=== PATIENT | male | born 1965 | race Caucasian/White ===

== ENCOUNTER 2025-01-04 11:51 | Inpatient (IN) | payer MEDICAID, OTHER ==
[~2025-01-04] VITALS: Ht 180.3 cm; Wt 73.1 kg
[~2025-01-04 11:51] MED LIST: NOCURR
[2025-01-04] MEDS ORDERED: TUBE5VIA TD (13:51)
[2025-01-04] MEDS ORDERED: MAGN400T57 PO (13:51)
[2025-01-04] MEDS ORDERED: ALBU18HF12 IH (13:51)
[2025-01-04] MEDS ORDERED: THIA100T80 PO (13:51)
[2025-01-04] MEDS ORDERED: FLUT1BLS3 IH (13:51)
[2025-01-04] MEDS ORDERED: MULT-1203 PO (13:51)
[2025-01-04] MEDS ORDERED: FOLI-130 PO (13:51)
[2025-01-04] MEDS ORDERED: NICO1PAT50 TD (13:51)
[2025-01-04] MEDS ORDERED: LEVE-71 PO (13:51)
[2025-01-04] MEDS ORDERED: OLAN2.5T78 PO (13:51)
[2025-01-04 13:52] LABS: PLATELET COUNT (AUTO) 318 K/uL (150-450); RED BLOOD CELL COUNT(AUTO) 4.25 MIL/uL (4.50-5.90); RED CELL DISTRIBUTION WIDTH 15.2 % (11.5-14.5); WHITE BLOOD COUNT (AUTO) 7.2 K/uL (4.5-11.0)
[2025-01-04 13:54] LABS: CALCIUM, TOTAL 8.9 mg/dL (8.8-10.5); CREATININE 0.69 mg/dL (0.60-1.30); GLOMERULAR FILTR. RATE CALC > 60 mL/min (>60); GLUCOSE,RANDOM 105 mg/dL (70-110); SODIUM SERUM 135 mmol/L (136-145); UREA NITROGEN, BLOOD 14 mg/dL (7-18)
[2025-01-04 13:58] LABS: ASPARTATE AMINOTRANSFERASE 14 U/L (15-37); CREATINE KINASE, TOTAL ONLY 46 U/L (39-308); TOTAL PROTEIN, SERUM 7.2 g/dL (6.4-8.2)
[2025-01-04 14:01] LABS: LACTIC ACID 0.7 mmol/L (0.4-2.0); TROPONIN I-HIGH SENSITIVITY 5 ng/L (<76)
[2025-01-04] MEDS: LevETIRAcetam 1,000 MG in DEXTROSE 5%-WATER 100 ML IV ONE (14:01)
[2025-01-04 14:23] LABS: ALCOHOL, BLOOD (SERUM) < 3 mg/dL (0-10)
[2025-01-04 14:40] LABS: APPEARANCE,URINE CLEAR (CLEAR); GLUCOSE, URINE (UA) NEGATIVE (NEGATIVE); LEUKOCYTE ESTERASE ,URINE NEGATIVE (NEGATIVE); NITRATE,URINE NEGATIVE (NEGATIVE); OCCULT BLOOD,URINE NEGATIVE (NEGATIVE); PH,URINE DRUG SCREEN 5.0 (5.0-8.0); SPECIFIC GRAVITIY, URINE 1.010 (1.003-1.030)
[2025-01-04 14:47] LABS: ALCOHOL, URINE DRUG SCREEN NEGATIVE (NEGATIVE); AMPHET/METH SCREEN,URINE NEGATIVE (NEGATIVE); BARBITURATE SCREEN, URINE NEGATIVE (NEGATIVE); CANNABINOID SCREEN,URINE NEGATIVE (NEGATIVE); COCAINE SCREEN,URINE NEGATIVE (NEGATIVE); METHADONE SCREEN, URINE NEGATIVE (NEGATIVE)
[2025-01-04] MEDS ORDERED: OLANZapine 5 MG RAPDIS TABLET PO PRN (15:30)
[2025-01-04] MEDS ORDERED: MAGNESIUM HYDROXIDE SUSPENSION 30 ML UDCUP PO PRN (15:30)
[2025-01-04] MEDS ORDERED: PROMETHAZINE HCL 25 MG TABLET PO PRN (15:30)
[2025-01-04] MEDS ORDERED: MAG HYDROX/ALUMINUM HYD/SIMETH ES 30 ML SUSPENSION UDCUP PO PRN (15:30)
[2025-01-04] MEDS ORDERED: ZOLPIDEM TARTRATE 10 MG TABLET PO PRN (15:30)
[2025-01-04] MEDS ORDERED: GuaiFENesin/D-METHORPHAN [SUGAR-FREE] 200-20MG/10 ML SYRUP UDCUP PO PRN (15:30)
[2025-01-04] MEDS: THIAMINE 100 MG TABLET PO SCH (22:23)
[2025-01-04] MEDS: OLANZapine 10 MG RAPDIS TABLET PO SCH (22:23)
[2025-01-05] VITALS (7 sets, daily range): BP systolic 107–136; BP diastolic 77–85; PULSE 78–104; RESP 16–19; TEMP 97.2–97.7; O2SAT 98–100
[2025-01-05] MEDS: MELATONIN 5 MG TABLET PO PRN (00:14)
[2025-01-05 01:42] LABS: COVID AG,FIA SOURCE NASAL SWAB
[2025-01-05 02:13] LABS: SARS-COV2 (COVID) ANTIGEN,FIA Negative (Negative)
[2025-01-05] MEDS: FOLIC ACID 1 MG TABLET PO SCH (08:32)
[2025-01-05] MEDS: DIVALPROEX SODIUM 500 MG ER TABLET PO SCH (08:32)
[2025-01-05] MEDS: MULTIVITAMINS WITH MINERALS, THERAPEUTIC TABLET PO SCH (08:32)
[2025-01-05 10:10] LABS: CHOL/HDL RATIO 2.0 (4.2-7.3); LDL CHOL (CALC.) 46.0 mg/dL (0-130)
[2025-01-05] MEDS: OLANZapine 10 MG RAPDIS TABLET PO SCH (20:45)
[2025-01-06 09:24] VITALS: BP 121/80; PULSE 80; RESP 18; TEMP 97.2; O2SAT 97
[2025-01-06 18:52] VITALS: BP 121/80; PULSE 80; RESP 18; TEMP 97.2
[2025-01-06 20:08] VITALS: BP 132/72; PULSE 120; RESP 16; TEMP 98.2; O2SAT 97
[2025-01-06] MEDS: ETHYL ALCOHOL 62% ANTISEPTIC NASAL SANITIZER 0.6 ML AMPUL NASAL SCH (20:43)
[2025-01-06] MEDS: PALIPERIDONE PALMITATE 234 MG/1.5 ML SYRINGE IM ONE (22:00)
[2025-01-07 08:30] VITALS: BP 112/70; PULSE 100; RESP 18; TEMP 97.2; O2SAT 90
[2025-01-07 10:40] VITALS: O2SAT 98
[2025-01-07 14:55] VITALS: RESP 18
[2025-01-07 20:44] VITALS: BP 99/83; PULSE 67; RESP 16; TEMP 97.9; O2SAT 95
[2025-01-08 08:20] VITALS: BP 131/84; PULSE 86; RESP 18; TEMP 97.5; O2SAT 99
[2025-01-08] MEDS: OLANZapine 5 MG RAPDIS TABLET PO PRN (16:10)
[2025-01-08 20:21] VITALS: BP 116/95; PULSE 98; RESP 18; TEMP 97.5; O2SAT 99
[2025-01-08] MEDS: OLANZapine 10 MG RAPDIS TABLET PO SCH (21:04)
[2025-01-09 08:30] VITALS: BP 99/71; PULSE 110; RESP 18; TEMP 97; O2SAT 98
[2025-01-09 20:51] VITALS: RESP 16
[2025-01-10 08:42] VITALS: BP 103/74; PULSE 100; RESP 17; TEMP 97.7; O2SAT 97
[2025-01-10] MEDS: PALIPERIDONE PALMITATE 156 MG/ML SYRINGE IM ONE (11:20)
[2025-01-10] MEDS: LOPERAMIDE HCL 2 MG CAPSULE PO PRN (20:38)
[2025-01-10 20:39] VITALS: BP 115/82; PULSE 101; RESP 16; TEMP 97.5; O2SAT 99
[2025-01-11 09:20] VITALS: BP 109/76; PULSE 82; RESP 17; TEMP 97.5; O2SAT 99
[2025-01-11] MEDS ORDERED: OLAN10TA26 PO (11:36)
[2025-01-11] MEDS ORDERED: LEVE-71 PO (11:36)
[2025-01-11] MEDS ORDERED: DIVA-153 PO (11:36)
[2025-01-11] MEDS ORDERED: MELA5TAB40 PO (11:36)
[2025-01-11] MEDS: ZOLPIDEM TARTRATE 10 MG TABLET PO PRN (20:45)
[2025-01-12 08:37] VITALS: BP 87/67; PULSE 76; RESP 18; TEMP 97.8
[2025-01-12 08:39] VITALS: BP 173/140; PULSE 137; RESP 18
[2025-01-12 08:43] VITALS: BP 88/57; PULSE 140; RESP 18
[2025-01-12 09:20] VITALS: BP 76/45; PULSE 95; RESP 16; O2SAT 97
[2025-01-12] MEDS ORDERED: GLUCAGON,HUMAN RECOMBINANT 1 MG VIAL IM PRN (18:30)
[2025-01-12 22:03] VITALS: RESP 18
[2025-01-12 23:41] LABS: GLUCOMETER DEV NAME(LOC) BV3S.2; GLUCOSE,POINT OF CARE 118 MG/DL (70-110)
[2025-01-13 06:25] LABS: GLUCOMETER DEV NAME(LOC) BV3S.2; GLUCOSE,POINT OF CARE 97 MG/DL (70-110)
[2025-01-13 11:36] LABS: GLUCOMETER DEV NAME(LOC) BV3S.2; GLUCOSE,POINT OF CARE 132 MG/DL (70-110)
[2025-01-13 11:45] VITALS: BP 100/65; PULSE 88; RESP 12; TEMP 97.8; O2SAT 98
[2025-01-13 16:55] LABS: GLUCOMETER DEV NAME(LOC) BV3S.2; GLUCOSE,POINT OF CARE 102 MG/DL (70-110)
[2025-01-13 20:16] VITALS: BP 110/76; PULSE 103; RESP 16; TEMP 98.2; O2SAT 100
[2025-01-13 21:21] LABS: GLUCOMETER DEV NAME(LOC) BV3S.2; GLUCOSE,POINT OF CARE 214 MG/DL (70-110)
[2025-01-14 06:20] LABS: GLUCOMETER DEV NAME(LOC) BV3S.2; GLUCOSE,POINT OF CARE 95 MG/DL (70-110)
[2025-01-14 09:34] VITALS: BP 99/63; PULSE 119; RESP 17; TEMP 97.7; O2SAT 99
[2025-01-14 11:55] LABS: GLUCOMETER DEV NAME(LOC) BV3S.2; GLUCOSE,POINT OF CARE 118 MG/DL (70-110)
[2025-01-14 12:44] VITALS: PULSE 116; RESP 17
[2025-01-14] MEDS: TUBERCULIN, PURIFIED PROTEIN DERIVATIVE 5 TU/0.1 ML SYRINGE ID ONE (15:52)
[2025-01-14 16:00] VITALS: BP 125/95; PULSE 90; RESP 18; TEMP 97.9; O2SAT 100
[2025-01-14 16:41] LABS: GLUCOMETER DEV NAME(LOC) BV3S.2; GLUCOSE,POINT OF CARE 101 MG/DL (70-110)
[2025-01-14 20:10] VITALS: BP 118/93; PULSE 100; RESP 18; TEMP 97.8; O2SAT 100
[2025-01-14 20:36] LABS: GLUCOMETER DEV NAME(LOC) BV3S.2; GLUCOSE,POINT OF CARE 110 MG/DL (70-110)
[2025-01-15 06:31] LABS: GLUCOMETER DEV NAME(LOC) BV3S.2; GLUCOSE,POINT OF CARE 155 MG/DL (70-110)
[2025-01-15 08:22] VITALS: BP 100/60; PULSE 73; RESP 17; TEMP 97.3; O2SAT 100
[2025-01-15 12:01] LABS: GLUCOMETER DEV NAME(LOC) BV3S.2; GLUCOSE,POINT OF CARE 97 MG/DL (70-110)
[2025-01-15 16:20] LABS: GLUCOMETER DEV NAME(LOC) BV3S.2; GLUCOSE,POINT OF CARE 101 MG/DL (70-110)
[2025-01-15 20:20] VITALS: BP 102/90; PULSE 113; RESP 17; TEMP 97.2; O2SAT 100
[2025-01-15 20:50] LABS: GLUCOMETER DEV NAME(LOC) BV3S.2; GLUCOSE,POINT OF CARE 104 MG/DL (70-110)
[2025-01-16 08:14] VITALS: BP 100/60; PULSE 97; RESP 18; TEMP 97.6; O2SAT 99
[2025-01-16 11:36] LABS: GLUCOMETER DEV NAME(LOC) BV3S.2; GLUCOSE,POINT OF CARE 159 MG/DL (70-110)
[2025-01-16 11:36] LABS: GLUCOMETER DEV NAME(LOC) BV3S.2; GLUCOSE,POINT OF CARE 109 MG/DL (70-110)
[2025-01-16 16:36] LABS: GLUCOMETER DEV NAME(LOC) BV3S.2; GLUCOSE,POINT OF CARE 110 MG/DL (70-110)
[2025-01-16 20:20] VITALS: BP 131/90; PULSE 100; RESP 18; TEMP 97.7; O2SAT 99
[2025-01-16 20:40] LABS: GLUCOMETER DEV NAME(LOC) BV3S.2; GLUCOSE,POINT OF CARE 119 MG/DL (70-110)
[2025-01-17 06:36] LABS: GLUCOMETER DEV NAME(LOC) BV3S.2; GLUCOSE,POINT OF CARE 131 MG/DL (70-110)
[2025-01-17 09:08] VITALS: BP 121/78; PULSE 100; RESP 18; TEMP 97.8; O2SAT 99
[2025-01-17 12:40] LABS: GLUCOMETER DEV NAME(LOC) BV3S.2; GLUCOSE,POINT OF CARE 121 MG/DL (70-110)
[2025-01-17 17:11] LABS: GLUCOMETER DEV NAME(LOC) BV3S.2; GLUCOSE,POINT OF CARE 104 MG/DL (70-110)
[2025-01-17 20:15] VITALS: BP 121/84; PULSE 74; RESP 19; TEMP 97.6; O2SAT 98
[2025-01-17 21:35] LABS: GLUCOMETER DEV NAME(LOC) BV3S.2; GLUCOSE,POINT OF CARE 97 MG/DL (70-110)
[2025-01-18 06:40] LABS: GLUCOMETER DEV NAME(LOC) BV3S.2; GLUCOSE,POINT OF CARE 99 MG/DL (70-110)
[2025-01-18 08:29] VITALS: BP 94/77; PULSE 87; RESP 18; TEMP 98.2; O2SAT 95
[2025-01-18 12:31] LABS: GLUCOMETER DEV NAME(LOC) BV3S.2; GLUCOSE,POINT OF CARE 107 MG/DL (70-110)
[2025-01-18 17:25] LABS: GLUCOMETER DEV NAME(LOC) BV3S.2; GLUCOSE,POINT OF CARE 108 MG/DL (70-110)
[2025-01-18 20:45] LABS: GLUCOMETER DEV NAME(LOC) BV3S.2; GLUCOSE,POINT OF CARE 93 MG/DL (70-110)
[2025-01-18 21:23] VITALS: BP 102/92; PULSE 100; RESP 16; TEMP 98.6; O2SAT 98
[2025-01-19 07:11] LABS: GLUCOMETER DEV NAME(LOC) BV3S.2; GLUCOSE,POINT OF CARE 107 MG/DL (70-110)
[2025-01-19 09:43] VITALS: BP 86/66; PULSE 110; RESP 17; TEMP 97.6; O2SAT 100
[2025-01-19] MEDS ORDERED: GLUCAGON,HUMAN RECOMBINANT 1 MG VIAL IM PRN (11:15)
[2025-01-19] MEDS: INSULIN LISPRO 100 UNITS/ML SQ PRN (11:21)
[2025-01-19 12:41] LABS: GLUCOMETER DEV NAME(LOC) BV3S.2; GLUCOSE,POINT OF CARE 211 MG/DL (70-110)
[2025-01-19] MEDS ORDERED: METF-1211 PO (13:24)
[2025-01-19] MEDS ORDERED: OLAN10TA26 PO (13:24)
[2025-01-19 13:54] VITALS: BP 120/81; RESP 17
[2025-01-19 16:36] LABS: GLUCOMETER DEV NAME(LOC) BV3S.2; GLUCOSE,POINT OF CARE 111 MG/DL (70-110)
[2025-01-19 20:01] VITALS: BP 105/67; PULSE 78; RESP 17; TEMP 98.7; O2SAT 100
[2025-01-19 20:56] LABS: GLUCOMETER DEV NAME(LOC) BV3S.2; GLUCOSE,POINT OF CARE 114 MG/DL (70-110)
[2025-01-20 06:06] LABS: GLUCOMETER DEV NAME(LOC) BV3S.2; GLUCOSE,POINT OF CARE 98 MG/DL (70-110)
[2025-01-20 08:36] VITALS: BP 112/85; PULSE 99; RESP 18; TEMP 97.6; O2SAT 95
[2025-01-20 16:45] LABS: GLUCOMETER DEV NAME(LOC) BV3S.2; GLUCOSE,POINT OF CARE 108 MG/DL (70-110)
[2025-01-20 16:46] LABS: GLUCOMETER DEV NAME(LOC) BV3S.2; GLUCOSE,POINT OF CARE 96 MG/DL (70-110)
[2025-01-20 20:17] VITALS: BP 132/98; PULSE 92; RESP 17; TEMP 95.6; O2SAT 100
[2025-01-20 21:51] LABS: GLUCOMETER DEV NAME(LOC) BV3S.2; GLUCOSE,POINT OF CARE 109 MG/DL (70-110)
[2025-01-21 06:31] LABS: GLUCOMETER DEV NAME(LOC) BV3S.2; GLUCOSE,POINT OF CARE 98 MG/DL (70-110)
[2025-01-21 08:13] VITALS: BP 119/79; PULSE 99; RESP 18; TEMP 97.4; O2SAT 94
[2025-01-21 12:05] LABS: GLUCOMETER DEV NAME(LOC) BV3S.2; GLUCOSE,POINT OF CARE 111 MG/DL (70-110)
[2025-01-21 17:21] LABS: GLUCOMETER DEV NAME(LOC) BV3S.2; GLUCOSE,POINT OF CARE 98 MG/DL (70-110)
[2025-01-21 20:33] VITALS: BP 110/77; PULSE 83; RESP 17; TEMP 97.3; O2SAT 97
[2025-01-21 20:35] LABS: GLUCOMETER DEV NAME(LOC) BV3S.2; GLUCOSE,POINT OF CARE 118 MG/DL (70-110)
[2025-01-22 06:41] LABS: GLUCOMETER DEV NAME(LOC) BV3S.2; GLUCOSE,POINT OF CARE 102 MG/DL (70-110)
[2025-01-22 08:59] VITALS: BP 109/77; PULSE 68; RESP 17; TEMP 98.2; O2SAT 99
[2025-01-22 11:31] LABS: GLUCOMETER DEV NAME(LOC) BV3S.2; GLUCOSE,POINT OF CARE 112 MG/DL (70-110)
[2025-01-22 16:50] LABS: GLUCOMETER DEV NAME(LOC) BV3S.2; GLUCOSE,POINT OF CARE 96 MG/DL (70-110)
[2025-01-22 20:07] VITALS: BP 124/77; PULSE 75; RESP 18; TEMP 97.5; O2SAT 98
[2025-01-22 20:40] LABS: GLUCOMETER DEV NAME(LOC) BV3S.2; GLUCOSE,POINT OF CARE 90 MG/DL (70-110)
[2025-01-23 06:20] LABS: GLUCOMETER DEV NAME(LOC) BV3S.2; GLUCOSE,POINT OF CARE 100 MG/DL (70-110)
[2025-01-23 08:13] VITALS: BP 100/61; PULSE 91; RESP 17; TEMP 97.4; O2SAT 98
[2025-01-23 11:46] LABS: GLUCOMETER DEV NAME(LOC) BV3S.2; GLUCOSE,POINT OF CARE 135 MG/DL (70-110)
[2025-01-23 19:55] LABS: GLUCOMETER DEV NAME(LOC) BV3S.2; GLUCOSE,POINT OF CARE 120 MG/DL (70-110)
[2025-01-23 19:55] LABS: GLUCOMETER DEV NAME(LOC) BV3S.2; GLUCOSE,POINT OF CARE 103 MG/DL (70-110)
[2025-01-23 20:29] VITALS: BP 119/79; PULSE 82; RESP 16; TEMP 97.7; O2SAT 99
[2025-01-24 06:16] LABS: GLUCOMETER DEV NAME(LOC) BV3S.2; GLUCOSE,POINT OF CARE 103 MG/DL (70-110)
[2025-01-24 08:22] VITALS: BP 100/64; PULSE 101; RESP 17; TEMP 97.5; O2SAT 97
[2025-01-24 11:41] LABS: GLUCOMETER DEV NAME(LOC) BV3S.2; GLUCOSE,POINT OF CARE 117 MG/DL (70-110)
[2025-01-24 16:21] LABS: GLUCOMETER DEV NAME(LOC) BV3S.2; GLUCOSE,POINT OF CARE 125 MG/DL (70-110)
[2025-01-24 20:09] VITALS: BP 112/82; PULSE 100; RESP 16; TEMP 97.5; O2SAT 98
[2025-01-24 20:26] LABS: GLUCOMETER DEV NAME(LOC) BV3S.2; GLUCOSE,POINT OF CARE 123 MG/DL (70-110)
[2025-01-25 06:35] LABS: GLUCOMETER DEV NAME(LOC) BV3S.2; GLUCOSE,POINT OF CARE 97 MG/DL (70-110)
[2025-01-25 08:46] VITALS: BP 107/64; PULSE 87; RESP 17; TEMP 97.9; O2SAT 96
[2025-01-25 17:05] LABS: GLUCOMETER DEV NAME(LOC) BV3S.2; GLUCOSE,POINT OF CARE 117 MG/DL (70-110)
[2025-01-25 17:05] LABS: GLUCOMETER DEV NAME(LOC) BV3S.2; GLUCOSE,POINT OF CARE 160 MG/DL (70-110)
[2025-01-25 20:05] VITALS: BP 109/70; PULSE 97; RESP 18; TEMP 97.8; O2SAT 99
[2025-01-25 20:30] LABS: GLUCOMETER DEV NAME(LOC) BV3S.2; GLUCOSE,POINT OF CARE 119 MG/DL (70-110)
[2025-01-26 06:11] LABS: GLUCOMETER DEV NAME(LOC) BV3S.2; GLUCOSE,POINT OF CARE 102 MG/DL (70-110)
[2025-01-26 08:08] VITALS: BP 101/67; PULSE 97; RESP 18; TEMP 96.7; O2SAT 99
[2025-01-26 11:21] LABS: GLUCOMETER DEV NAME(LOC) BV3S.2; GLUCOSE,POINT OF CARE 101 MG/DL (70-110)
[2025-01-26 17:25] LABS: GLUCOMETER DEV NAME(LOC) BV3S.2; GLUCOSE,POINT OF CARE 104 MG/DL (70-110)
[2025-01-26 20:25] LABS: GLUCOMETER DEV NAME(LOC) BV3S.2; GLUCOSE,POINT OF CARE 140 MG/DL (70-110)
[2025-01-26 20:27] VITALS: BP 117/81; PULSE 97; RESP 17; TEMP 97.3; O2SAT 96
[2025-01-27 06:31] LABS: GLUCOMETER DEV NAME(LOC) BV3S.2; GLUCOSE,POINT OF CARE 102 MG/DL (70-110)
[2025-01-27 08:06] VITALS: BP 127/95; PULSE 98; RESP 18; TEMP 97.3; O2SAT 100
[2025-01-27 11:41] LABS: GLUCOMETER DEV NAME(LOC) BV3S.2; GLUCOSE,POINT OF CARE 115 MG/DL (70-110)
[2025-01-27 18:16] LABS: GLUCOMETER DEV NAME(LOC) BV3S.2; GLUCOSE,POINT OF CARE 117 MG/DL (70-110)
[2025-01-27 20:05] VITALS: BP 110/67; PULSE 83; RESP 18; TEMP 97.7; O2SAT 98
[2025-01-27 22:05] LABS: GLUCOMETER DEV NAME(LOC) BV3S.2; GLUCOSE,POINT OF CARE 111 MG/DL (70-110)
[2025-01-28 06:15] LABS: GLUCOMETER DEV NAME(LOC) BV3S.2; GLUCOSE,POINT OF CARE 101 MG/DL (70-110)
[2025-01-28 08:24] VITALS: BP 113/81; PULSE 97; RESP 18; TEMP 97.3; O2SAT 94
[2025-01-28 11:50] LABS: GLUCOMETER DEV NAME(LOC) BV3S.2; GLUCOSE,POINT OF CARE 115 MG/DL (70-110)
[2025-01-28 16:21] LABS: GLUCOMETER DEV NAME(LOC) BV3S.2; GLUCOSE,POINT OF CARE 117 MG/DL (70-110)
[2025-01-28 20:25] VITALS: BP 105/70; PULSE 78; RESP 18; TEMP 97.5; O2SAT 98
[2025-01-28 21:01] LABS: GLUCOMETER DEV NAME(LOC) BV3S.2; GLUCOSE,POINT OF CARE 109 MG/DL (70-110)
[2025-01-29 05:51] LABS: GLUCOMETER DEV NAME(LOC) BV3S.2; GLUCOSE,POINT OF CARE 102 MG/DL (70-110)
[2025-01-29 16:41] LABS: GLUCOMETER DEV NAME(LOC) BV3S.2; GLUCOSE,POINT OF CARE 128 MG/DL (70-110)
[2025-01-29 16:41] LABS: GLUCOMETER DEV NAME(LOC) BV3S.2; GLUCOSE,POINT OF CARE 103 MG/DL (70-110)
[2025-01-29 17:16] VITALS: RESP 18
[2025-01-29 20:27] VITALS: BP 104/78; PULSE 87; RESP 16; TEMP 97.6; O2SAT 97
[2025-01-29 21:40] LABS: GLUCOMETER DEV NAME(LOC) BV3S.2; GLUCOSE,POINT OF CARE 107 MG/DL (70-110)
[2025-01-30 06:50] LABS: GLUCOMETER DEV NAME(LOC) BV3S.2; GLUCOSE,POINT OF CARE 97 MG/DL (70-110)
[2025-01-30 08:19] VITALS: BP 108/69; PULSE 97; RESP 18; TEMP 97.5; O2SAT 99
[2025-01-30 16:31] LABS: GLUCOMETER DEV NAME(LOC) BV3S.2; GLUCOSE,POINT OF CARE 99 MG/DL (70-110)
[2025-01-30 16:31] LABS: GLUCOMETER DEV NAME(LOC) BV3S.2; GLUCOSE,POINT OF CARE 122 MG/DL (70-110)
[2025-01-30 20:13] VITALS: BP 108/84; PULSE 80; RESP 17; TEMP 97.2; O2SAT 96
[2025-01-31 06:31] LABS: GLUCOMETER DEV NAME(LOC) BV3S.2; GLUCOSE,POINT OF CARE 94 MG/DL (70-110)
[2025-01-31 08:44] VITALS: BP 108/70; PULSE 97; RESP 18; TEMP 97.3; O2SAT 94
[2025-01-31 11:31] LABS: GLUCOMETER DEV NAME(LOC) BV3S.2; GLUCOSE,POINT OF CARE 115 MG/DL (70-110)
[2025-01-31 16:55] LABS: GLUCOMETER DEV NAME(LOC) BV3S.2; GLUCOSE,POINT OF CARE 112 MG/DL (70-110)
[2025-01-31 20:12] VITALS: BP 100/62; PULSE 73; RESP 18; TEMP 97.5; O2SAT 97
[2025-01-31 23:46] LABS: GLUCOMETER DEV NAME(LOC) BV3S.2; GLUCOSE,POINT OF CARE 113 MG/DL (70-110)
[2025-02-01 06:30] LABS: GLUCOMETER DEV NAME(LOC) BV3S.2; GLUCOSE,POINT OF CARE 96 MG/DL (70-110)
[2025-02-01 08:33] VITALS: BP 109/71; PULSE 86; RESP 17; TEMP 97.9; O2SAT 97
[2025-02-01 14:26] LABS: GLUCOMETER DEV NAME(LOC) BV3S.2; GLUCOSE,POINT OF CARE 108 MG/DL (70-110)
[2025-02-01 16:35] LABS: GLUCOMETER DEV NAME(LOC) BV3S.2; GLUCOSE,POINT OF CARE 103 MG/DL (70-110)
[2025-02-01 19:51] LABS: GLUCOMETER DEV NAME(LOC) BV3S.2; GLUCOSE,POINT OF CARE 120 MG/DL (70-110)
[2025-02-01 20:28] VITALS: BP 120/89; PULSE 92; RESP 17; TEMP 97; O2SAT 96
[2025-02-02 06:31] LABS: GLUCOMETER DEV NAME(LOC) BV3S.2; GLUCOSE,POINT OF CARE 102 MG/DL (70-110)
[2025-02-02 08:21] VITALS: BP 100/79; PULSE 83; RESP 16; TEMP 97
[2025-02-02 12:10] LABS: GLUCOMETER DEV NAME(LOC) BV3S.2; GLUCOSE,POINT OF CARE 103 MG/DL (70-110)
[2025-02-02 17:06] LABS: GLUCOMETER DEV NAME(LOC) BV3S.2; GLUCOSE,POINT OF CARE 107 MG/DL (70-110)
[2025-02-02 20:36] VITALS: BP 121/82; PULSE 87; RESP 18; TEMP 97.8; O2SAT 98
[2025-02-02 22:31] LABS: GLUCOMETER DEV NAME(LOC) 3E.C; GLUCOSE,POINT OF CARE 118 MG/DL (70-110)
[2025-02-03 00:11] VITALS: BP 95/73; PULSE 69; RESP 18; TEMP 97.5; O2SAT 97
[2025-02-03 07:00] LABS: GLUCOMETER DEV NAME(LOC) 3E.C; GLUCOSE,POINT OF CARE 99 MG/DL (70-110)
[2025-02-03 11:14] VITALS: BP 94/61; PULSE 100; RESP 19; TEMP 97.3; O2SAT 97
[2025-02-03 11:51] LABS: GLUCOMETER DEV NAME(LOC) 3E.C; GLUCOSE,POINT OF CARE 97 MG/DL (70-110)
[2025-02-03 17:36] LABS: GLUCOMETER DEV NAME(LOC) 3E.C; GLUCOSE,POINT OF CARE 110 MG/DL (70-110)
[2025-02-03 21:26] LABS: GLUCOMETER DEV NAME(LOC) 3E.C; GLUCOSE,POINT OF CARE 105 MG/DL (70-110)
[2025-02-03 23:42] VITALS: BP 103/80; PULSE 101; RESP 18; TEMP 98.6; O2SAT 98
[2025-02-04 06:06] LABS: GLUCOMETER DEV NAME(LOC) 3E.C; GLUCOSE,POINT OF CARE 96 MG/DL (70-110)
[2025-02-04 11:30] LABS: GLUCOMETER DEV NAME(LOC) 3E.C; GLUCOSE,POINT OF CARE 117 MG/DL (70-110)
[2025-02-04 15:43] VITALS: RESP 18
[2025-02-04 16:41] LABS: GLUCOMETER DEV NAME(LOC) 3E.C; GLUCOSE,POINT OF CARE 105 MG/DL (70-110)
[2025-02-04 21:26] LABS: GLUCOMETER DEV NAME(LOC) 3E.C; GLUCOSE,POINT OF CARE 124 MG/DL (70-110)
[2025-02-04 23:48] VITALS: RESP 18
[2025-02-05 07:06] LABS: GLUCOMETER DEV NAME(LOC) 3E.C; GLUCOSE,POINT OF CARE 101 MG/DL (70-110)
[2025-02-05 09:24] VITALS: BP 99/75; PULSE 60; RESP 18; TEMP 98.2; O2SAT 95
[2025-02-05 11:46] LABS: GLUCOMETER DEV NAME(LOC) 3E.C; GLUCOSE,POINT OF CARE 118 MG/DL (70-110)
[2025-02-05 17:55] LABS: GLUCOMETER DEV NAME(LOC) 3E.C; GLUCOSE,POINT OF CARE 162 MG/DL (70-110)
[2025-02-05 21:05] VITALS: RESP 18
[2025-02-05 21:40] LABS: GLUCOMETER DEV NAME(LOC) 3E.C; GLUCOSE,POINT OF CARE 125 MG/DL (70-110)
[2025-02-06 06:50] LABS: GLUCOMETER DEV NAME(LOC) 3E.C; GLUCOSE,POINT OF CARE 97 MG/DL (70-110)
[2025-02-06 10:23] VITALS: BP 97/63; PULSE 71; RESP 17; TEMP 96.9; O2SAT 100
[2025-02-06 11:50] LABS: GLUCOMETER DEV NAME(LOC) 3E.C; GLUCOSE,POINT OF CARE 105 MG/DL (70-110)
[2025-02-06 17:35] LABS: GLUCOMETER DEV NAME(LOC) 3E.C; GLUCOSE,POINT OF CARE 99 MG/DL (70-110)
[2025-02-06 22:14] VITALS: BP 98/64; PULSE 83; RESP 18; TEMP 98; O2SAT 96
[2025-02-06 22:46] LABS: GLUCOMETER DEV NAME(LOC) 3E.C; GLUCOSE,POINT OF CARE 92 MG/DL (70-110)
[2025-02-07 06:01] LABS: GLUCOMETER DEV NAME(LOC) 3E.C; GLUCOSE,POINT OF CARE 100 MG/DL (70-110)
[2025-02-07 08:52] VITALS: BP 126/101; PULSE 97; RESP 18; TEMP 97.8; O2SAT 96
[2025-02-07 12:16] LABS: GLUCOMETER DEV NAME(LOC) 3E.C; GLUCOSE,POINT OF CARE 111 MG/DL (70-110)
[2025-02-07 17:50] LABS: GLUCOMETER DEV NAME(LOC) 3E.C; GLUCOSE,POINT OF CARE 109 MG/DL (70-110)
[2025-02-07 21:35] LABS: GLUCOMETER DEV NAME(LOC) 3E.C; GLUCOSE,POINT OF CARE 101 MG/DL (70-110)
[2025-02-07 23:53] VITALS: RESP 18
[2025-02-08 07:00] LABS: GLUCOMETER DEV NAME(LOC) 3E.C; GLUCOSE,POINT OF CARE 89 MG/DL (70-110)
[2025-02-08 12:06] LABS: GLUCOMETER DEV NAME(LOC) 3E.C; GLUCOSE,POINT OF CARE 113 MG/DL (70-110)
[2025-02-08 17:10] LABS: GLUCOMETER DEV NAME(LOC) 3E.C; GLUCOSE,POINT OF CARE 119 MG/DL (70-110)
[2025-02-08 18:34] VITALS: BP 128/83; PULSE 87; RESP 17; TEMP 97.8
[2025-02-08 21:30] LABS: GLUCOMETER DEV NAME(LOC) 3E.C; GLUCOSE,POINT OF CARE 101 MG/DL (70-110)
[2025-02-08 22:24] VITALS: BP 120/78; PULSE 80; RESP 18; TEMP 97.5
[2025-02-09 06:46] LABS: GLUCOMETER DEV NAME(LOC) 3E.C; GLUCOSE,POINT OF CARE 95 MG/DL (70-110)
[2025-02-09 10:21] VITALS: BP 108/70; PULSE 61; RESP 18; TEMP 98; O2SAT 98
[2025-02-09 11:56] LABS: GLUCOMETER DEV NAME(LOC) 3E.C; GLUCOSE,POINT OF CARE 116 MG/DL (70-110)
[2025-02-09 17:50] LABS: GLUCOMETER DEV NAME(LOC) 3E.C; GLUCOSE,POINT OF CARE 116 MG/DL (70-110)
[2025-02-09 20:06] LABS: GLUCOMETER DEV NAME(LOC) 3E.C; GLUCOSE,POINT OF CARE 101 MG/DL (70-110)
[2025-02-09 20:30] VITALS: BP 121/68; PULSE 65; RESP 18; O2SAT 97
[2025-02-10 06:40] LABS: GLUCOMETER DEV NAME(LOC) 3E.C; GLUCOSE,POINT OF CARE 92 MG/DL (70-110)
[2025-02-10 11:05] VITALS: BP 103/86; PULSE 65; RESP 17; TEMP 97.7; O2SAT 97
[2025-02-10 11:50] LABS: GLUCOMETER DEV NAME(LOC) 3E.C; GLUCOSE,POINT OF CARE 110 MG/DL (70-110)
[2025-02-10 16:45] LABS: GLUCOMETER DEV NAME(LOC) 3E.C; GLUCOSE,POINT OF CARE 88 MG/DL (70-110)
[2025-02-10 21:00] LABS: GLUCOMETER DEV NAME(LOC) 3E.I 2; GLUCOSE,POINT OF CARE 101 MG/DL (70-110)
[2025-02-10 21:05] VITALS: BP 102/60; PULSE 72; RESP 18; TEMP 97.5; O2SAT 96
[2025-02-11 06:21] LABS: GLUCOMETER DEV NAME(LOC) 3EX.2; GLUCOSE,POINT OF CARE 104 MG/DL (70-110)
[2025-02-11 10:43] VITALS: BP 109/98; PULSE 82; RESP 19; TEMP 97; O2SAT 95
[2025-02-11 11:35] LABS: GLUCOMETER DEV NAME(LOC) 3EX.2; GLUCOSE,POINT OF CARE 121 MG/DL (70-110)
[2025-02-11 16:51] LABS: GLUCOMETER DEV NAME(LOC) 3EX.2; GLUCOSE,POINT OF CARE 110 MG/DL (70-110)
[2025-02-11 20:25] LABS: GLUCOMETER DEV NAME(LOC) 3EX.2; GLUCOSE,POINT OF CARE 106 MG/DL (70-110)
[2025-02-11 21:19] VITALS: BP 109/70; PULSE 72; RESP 18; TEMP 98.4; O2SAT 97
[2025-02-12 06:30] LABS: GLUCOMETER DEV NAME(LOC) 3EX.2; GLUCOSE,POINT OF CARE 102 MG/DL (70-110)
[2025-02-12 11:51] LABS: GLUCOMETER DEV NAME(LOC) 3EX.2; GLUCOSE,POINT OF CARE 113 MG/DL (70-110)
[2025-02-12 12:03] VITALS: RESP 17
[2025-02-12] MEDS: ACETAMINOPHEN 325 MG TABLET PO PRN (15:48)
[2025-02-12 16:56] LABS: GLUCOMETER DEV NAME(LOC) 3EX.2; GLUCOSE,POINT OF CARE 115 MG/DL (70-110)
[2025-02-12 20:20] LABS: GLUCOMETER DEV NAME(LOC) 3EX.2; GLUCOSE,POINT OF CARE 112 MG/DL (70-110)
[2025-02-12 22:00] VITALS: BP 104/77; PULSE 97; RESP 18; TEMP 97.6; O2SAT 97
[2025-02-13 05:41] LABS: GLUCOMETER DEV NAME(LOC) 3EX.2; GLUCOSE,POINT OF CARE 89 MG/DL (70-110)
[2025-02-13 09:24] VITALS: BP 114/79; PULSE 59; RESP 18; TEMP 98.2; O2SAT 100
[2025-02-13 11:46] LABS: GLUCOMETER DEV NAME(LOC) 3EX.2; GLUCOSE,POINT OF CARE 122 MG/DL (70-110)
[2025-02-13 16:45] LABS: GLUCOMETER DEV NAME(LOC) 3EX.2; GLUCOSE,POINT OF CARE 107 MG/DL (70-110)
[2025-02-13 20:41] LABS: GLUCOMETER DEV NAME(LOC) 3EX.2; GLUCOSE,POINT OF CARE 100 MG/DL (70-110)
[2025-02-13 21:59] VITALS: BP 123/89; PULSE 71; RESP 20; TEMP 98.6; O2SAT 97
[2025-02-14 05:41] LABS: GLUCOMETER DEV NAME(LOC) 3EX.2; GLUCOSE,POINT OF CARE 89 MG/DL (70-110)
[2025-02-14 10:16] VITALS: BP 98/67; PULSE 56; RESP 17; TEMP 97.7; O2SAT 99
[2025-02-14 11:16] LABS: GLUCOMETER DEV NAME(LOC) 3EX.2; GLUCOSE,POINT OF CARE 127 MG/DL (70-110)
[2025-02-14 17:10] LABS: GLUCOMETER DEV NAME(LOC) 3EX.2; GLUCOSE,POINT OF CARE 113 MG/DL (70-110)
[2025-02-14 21:04] VITALS: BP 118/64; PULSE 70; RESP 17; TEMP 98.1; O2SAT 98
[2025-02-14 21:15] LABS: GLUCOMETER DEV NAME(LOC) 3EX.2; GLUCOSE,POINT OF CARE 128 MG/DL (70-110)
[2025-02-15 07:10] LABS: GLUCOMETER DEV NAME(LOC) 3EX.2; GLUCOSE,POINT OF CARE 115 MG/DL (70-110)
[2025-02-15 08:19] VITALS: BP 113/66; PULSE 57; RESP 17; TEMP 96.9; O2SAT 98
[2025-02-15 12:21] LABS: GLUCOMETER DEV NAME(LOC) 3EX.2; GLUCOSE,POINT OF CARE 103 MG/DL (70-110)
[2025-02-15 17:20] LABS: GLUCOMETER DEV NAME(LOC) 3EX.2; GLUCOSE,POINT OF CARE 97 MG/DL (70-110)
[2025-02-15 21:25] LABS: GLUCOMETER DEV NAME(LOC) 3EX.2; GLUCOSE,POINT OF CARE 93 MG/DL (70-110)
[2025-02-15 23:06] VITALS: BP 109/80; PULSE 63; RESP 17; TEMP 97.3; O2SAT 95
[2025-02-16 06:11] LABS: GLUCOMETER DEV NAME(LOC) 3EX.2; GLUCOSE,POINT OF CARE 88 MG/DL (70-110)
[2025-02-16 08:30] VITALS: BP 95/60; PULSE 60; RESP 18; TEMP 97.5; O2SAT 98
[2025-02-16 11:46] LABS: GLUCOMETER DEV NAME(LOC) 3EX.2; GLUCOSE,POINT OF CARE 125 MG/DL (70-110)
[2025-02-16 17:25] LABS: GLUCOMETER DEV NAME(LOC) 3EX.2; GLUCOSE,POINT OF CARE 161 MG/DL (70-110)
[2025-02-16 21:30] LABS: GLUCOMETER DEV NAME(LOC) 3EX.2; GLUCOSE,POINT OF CARE 109 MG/DL (70-110)
[2025-02-16 22:26] VITALS: BP 111/79; PULSE 67; RESP 18; TEMP 97.3; O2SAT 99
[2025-02-17 06:40] LABS: GLUCOMETER DEV NAME(LOC) 3EX.2; GLUCOSE,POINT OF CARE 99 MG/DL (70-110)
[2025-02-17 10:44] VITALS: BP 103/67; PULSE 69; RESP 18; TEMP 98.5; O2SAT 96
[2025-02-17 11:30] LABS: GLUCOMETER DEV NAME(LOC) 3EX.2; GLUCOSE,POINT OF CARE 103 MG/DL (70-110)
[2025-02-17 17:26] LABS: GLUCOMETER DEV NAME(LOC) 3EX.2; GLUCOSE,POINT OF CARE 117 MG/DL (70-110)
[2025-02-17 21:20] LABS: GLUCOMETER DEV NAME(LOC) 3EX.2; GLUCOSE,POINT OF CARE 117 MG/DL (70-110)
[2025-02-17 21:55] VITALS: BP 101/61; PULSE 68; RESP 18; TEMP 97.2; O2SAT 95
[2025-02-18 06:50] LABS: GLUCOMETER DEV NAME(LOC) 3EX.2; GLUCOSE,POINT OF CARE 96 MG/DL (70-110)
[2025-02-18 09:00] VITALS: BP 102/68; PULSE 98; RESP 18; TEMP 97.3; O2SAT 97
[2025-02-18 13:21] LABS: GLUCOMETER DEV NAME(LOC) 3EX.2; GLUCOSE,POINT OF CARE 101 MG/DL (70-110)
[2025-02-18 18:21] LABS: GLUCOMETER DEV NAME(LOC) 3EX.2; GLUCOSE,POINT OF CARE 135 MG/DL (70-110)
[2025-02-18 20:30] LABS: GLUCOMETER DEV NAME(LOC) 3EX.2; GLUCOSE,POINT OF CARE 123 MG/DL (70-110)
[2025-02-18 21:39] VITALS: BP 94/65; PULSE 98; RESP 18; TEMP 98.1; O2SAT 95
[2025-02-19 05:51] LABS: GLUCOMETER DEV NAME(LOC) 3EX.2; GLUCOSE,POINT OF CARE 93 MG/DL (70-110)
[2025-02-19 08:30] VITALS: BP 110/83; PULSE 97; RESP 18; TEMP 98.4; O2SAT 96
[2025-02-19 11:26] LABS: GLUCOMETER DEV NAME(LOC) 3EX.2; GLUCOSE,POINT OF CARE 100 MG/DL (70-110)
[2025-02-19 18:10] LABS: GLUCOMETER DEV NAME(LOC) 3EX.2; GLUCOSE,POINT OF CARE 114 MG/DL (70-110)
[2025-02-19 20:15] LABS: GLUCOMETER DEV NAME(LOC) 3EX.2; GLUCOSE,POINT OF CARE 135 MG/DL (70-110)
[2025-02-19 21:40] VITALS: BP 100/70; PULSE 105; RESP 18; TEMP 97.7; O2SAT 96
[2025-02-20 05:30] LABS: GLUCOMETER DEV NAME(LOC) 3EX.2; GLUCOSE,POINT OF CARE 108 MG/DL (70-110)
[2025-02-20 08:16] VITALS: BP 110/76; PULSE 81; RESP 20; TEMP 97.2; O2SAT 97
[2025-02-20 11:26] LABS: GLUCOMETER DEV NAME(LOC) 3EX.2; GLUCOSE,POINT OF CARE 97 MG/DL (70-110)
[2025-02-20 17:15] LABS: GLUCOMETER DEV NAME(LOC) 3EX.2; GLUCOSE,POINT OF CARE 114 MG/DL (70-110)
[2025-02-20 20:11] LABS: GLUCOMETER DEV NAME(LOC) 3EX.2; GLUCOSE,POINT OF CARE 114 MG/DL (70-110)
[2025-02-20 21:34] VITALS: BP 102/74; PULSE 87; RESP 18; TEMP 98.1; O2SAT 95
[2025-02-21 05:21] LABS: GLUCOMETER DEV NAME(LOC) 3EX.2; GLUCOSE,POINT OF CARE 93 MG/DL (70-110)
[2025-02-21 11:01] VITALS: BP 112/78; PULSE 96; RESP 16; TEMP 97.1; O2SAT 100
[2025-02-21 11:41] LABS: GLUCOMETER DEV NAME(LOC) 3EX.2; GLUCOSE,POINT OF CARE 114 MG/DL (70-110)
[2025-02-21 16:45] LABS: GLUCOMETER DEV NAME(LOC) 3EX.2; GLUCOSE,POINT OF CARE 116 MG/DL (70-110)
[2025-02-21 22:39] VITALS: BP 103/71; PULSE 70; RESP 17; TEMP 97.7; O2SAT 96
[2025-02-22 06:15] LABS: GLUCOMETER DEV NAME(LOC) 3EX.2; GLUCOSE,POINT OF CARE 102 MG/DL (70-110)
[2025-02-22 10:21] VITALS: BP 103/74; PULSE 82; RESP 18; TEMP 97.7; O2SAT 96
[2025-02-22 12:00] LABS: GLUCOMETER DEV NAME(LOC) 3EX.2; GLUCOSE,POINT OF CARE 126 MG/DL (70-110)
[2025-02-22 20:56] VITALS: BP 106/80; PULSE 80; RESP 18; TEMP 97.8; O2SAT 100
[2025-02-22 22:10] LABS: GLUCOMETER DEV NAME(LOC) 3EX.2; GLUCOSE,POINT OF CARE 141 MG/DL (70-110)
[2025-02-23 06:45] LABS: GLUCOMETER DEV NAME(LOC) 3EX.2; GLUCOSE,POINT OF CARE 115 MG/DL (70-110)
[2025-02-23 09:29] VITALS: BP 107/81; PULSE 70; RESP 18; TEMP 97.5; O2SAT 100
[2025-02-23 12:05] LABS: GLUCOMETER DEV NAME(LOC) 3EX.2; GLUCOSE,POINT OF CARE 118 MG/DL (70-110)
[2025-02-23 16:51] LABS: GLUCOMETER DEV NAME(LOC) 3EX.2; GLUCOSE,POINT OF CARE 120 MG/DL (70-110)
[2025-02-23 20:30] VITALS: BP 112/69; PULSE 67; RESP 18; TEMP 97.7; O2SAT 96
[2025-02-23 21:40] LABS: GLUCOMETER DEV NAME(LOC) 3EX.2; GLUCOSE,POINT OF CARE 110 MG/DL (70-110)
[2025-02-24 05:46] LABS: GLUCOMETER DEV NAME(LOC) 3EX.2; GLUCOSE,POINT OF CARE 98 MG/DL (70-110)
[2025-02-24 10:31] VITALS: BP 80/56; PULSE 77; RESP 18; TEMP 97.8; O2SAT 96
[2025-02-24 11:45] LABS: GLUCOMETER DEV NAME(LOC) 3EX.2; GLUCOSE,POINT OF CARE 105 MG/DL (70-110)
[2025-02-24 17:11] LABS: GLUCOMETER DEV NAME(LOC) 3EX.2; GLUCOSE,POINT OF CARE 109 MG/DL (70-110)
[2025-02-24 21:36] LABS: GLUCOMETER DEV NAME(LOC) 3EX.2; GLUCOSE,POINT OF CARE 118 MG/DL (70-110)
[2025-02-25 00:03] VITALS: BP 101/67; PULSE 74; RESP 17; TEMP 97; O2SAT 97
[2025-02-25 05:51] LABS: GLUCOMETER DEV NAME(LOC) 3EX.2; GLUCOSE,POINT OF CARE 117 MG/DL (70-110)
[2025-02-25 08:27] VITALS: BP 105/80; PULSE 110; RESP 18; TEMP 97.9; O2SAT 99
[2025-02-25 11:46] LABS: GLUCOMETER DEV NAME(LOC) 3EX.2; GLUCOSE,POINT OF CARE 107 MG/DL (70-110)
[2025-02-25 17:06] LABS: GLUCOMETER DEV NAME(LOC) 3EX.2; GLUCOSE,POINT OF CARE 133 MG/DL (70-110)
[2025-02-25 20:30] LABS: GLUCOMETER DEV NAME(LOC) 3EX.2; GLUCOSE,POINT OF CARE 137 MG/DL (70-110)
[2025-02-25 21:02] VITALS: BP 102/67; PULSE 77; RESP 16; TEMP 97.5; O2SAT 98
[2025-02-26 06:10] LABS: GLUCOMETER DEV NAME(LOC) 3EX.2; GLUCOSE,POINT OF CARE 100 MG/DL (70-110)
[2025-02-26 11:45] LABS: GLUCOMETER DEV NAME(LOC) 3EX.2; GLUCOSE,POINT OF CARE 105 MG/DL (70-110)
[2025-02-26 17:10] LABS: GLUCOMETER DEV NAME(LOC) 3EX.2; GLUCOSE,POINT OF CARE 116 MG/DL (70-110)
[2025-02-26 18:07] VITALS: BP 133/95; PULSE 96; RESP 18; TEMP 97; O2SAT 100
[2025-02-26 20:25] LABS: GLUCOMETER DEV NAME(LOC) 3EX.2; GLUCOSE,POINT OF CARE 131 MG/DL (70-110)
[2025-02-26 22:30] VITALS: BP 116/78; PULSE 79; RESP 18; TEMP 97.2; O2SAT 100
[2025-02-27 06:25] LABS: GLUCOMETER DEV NAME(LOC) 3EX.2; GLUCOSE,POINT OF CARE 85 MG/DL (70-110)
[2025-02-27 11:17] VITALS: BP 108/84; PULSE 96; RESP 19; TEMP 97.9; O2SAT 98
[2025-02-27 11:50] LABS: GLUCOMETER DEV NAME(LOC) 3EX.2; GLUCOSE,POINT OF CARE 105 MG/DL (70-110)
[2025-02-27 17:41] LABS: GLUCOMETER DEV NAME(LOC) 3EX.2; GLUCOSE,POINT OF CARE 115 MG/DL (70-110)
[2025-02-27 20:55] LABS: GLUCOMETER DEV NAME(LOC) 3EX.2; GLUCOSE,POINT OF CARE 117 MG/DL (70-110)
[2025-02-27 21:31] VITALS: BP 110/77; PULSE 96; RESP 18; O2SAT 98
[2025-02-28 06:15] LABS: GLUCOMETER DEV NAME(LOC) 3EX.2; GLUCOSE,POINT OF CARE 97 MG/DL (70-110)
[2025-02-28 10:35] VITALS: BP 112/93; PULSE 75; RESP 18; TEMP 97.9; O2SAT 98
[2025-02-28 11:30] LABS: GLUCOMETER DEV NAME(LOC) 3EX.2; GLUCOSE,POINT OF CARE 115 MG/DL (70-110)
[2025-02-28 17:45] LABS: GLUCOMETER DEV NAME(LOC) 3EX.2; GLUCOSE,POINT OF CARE 106 MG/DL (70-110)
[2025-02-28 20:30] LABS: GLUCOMETER DEV NAME(LOC) 3EX.2; GLUCOSE,POINT OF CARE 109 MG/DL (70-110)
[2025-02-28 23:10] VITALS: BP 105/66; PULSE 67; RESP 17; TEMP 98.1; O2SAT 97
[2025-03-01 05:36] LABS: GLUCOMETER DEV NAME(LOC) 3EX.2; GLUCOSE,POINT OF CARE 94 MG/DL (70-110)
[2025-03-01 10:56] VITALS: BP 127/96; PULSE 98; RESP 19; TEMP 97.7; O2SAT 98
[2025-03-01 12:00] LABS: GLUCOMETER DEV NAME(LOC) 3EX.2; GLUCOSE,POINT OF CARE 118 MG/DL (70-110)
[2025-03-01 17:01] LABS: GLUCOMETER DEV NAME(LOC) 3EX.2; GLUCOSE,POINT OF CARE 122 MG/DL (70-110)
[2025-03-01 20:20] LABS: GLUCOMETER DEV NAME(LOC) 3EX.2; GLUCOSE,POINT OF CARE 127 MG/DL (70-110)
[2025-03-01 21:55] VITALS: BP 119/70; PULSE 77; RESP 16; TEMP 97.9; O2SAT 98
[2025-03-02 05:35] LABS: GLUCOMETER DEV NAME(LOC) 3EX.2; GLUCOSE,POINT OF CARE 106 MG/DL (70-110)
[2025-03-02 11:50] LABS: GLUCOMETER DEV NAME(LOC) 3EX.2; GLUCOSE,POINT OF CARE 118 MG/DL (70-110)
[2025-03-02 14:16] VITALS: RESP 16
[2025-03-02 17:50] LABS: GLUCOMETER DEV NAME(LOC) 3EX.2; GLUCOSE,POINT OF CARE 102 MG/DL (70-110)
[2025-03-02 21:36] LABS: GLUCOMETER DEV NAME(LOC) 3EX.2; GLUCOSE,POINT OF CARE 112 MG/DL (70-110)
[2025-03-02 23:05] VITALS: BP 110/70; PULSE 73; RESP 18; TEMP 97.9; O2SAT 97
[2025-03-03 06:16] LABS: GLUCOMETER DEV NAME(LOC) 3EX.2; GLUCOSE,POINT OF CARE 100 MG/DL (70-110)
[2025-03-03 10:00] VITALS: BP 100/76; PULSE 73; RESP 18; TEMP 98.4; O2SAT 100
[2025-03-03 11:56] LABS: GLUCOMETER DEV NAME(LOC) 3EX.2; GLUCOSE,POINT OF CARE 96 MG/DL (70-110)
[2025-03-03 17:50] LABS: GLUCOMETER DEV NAME(LOC) 3EX.2; GLUCOSE,POINT OF CARE 173 MG/DL (70-110)
[2025-03-03 20:11] LABS: GLUCOMETER DEV NAME(LOC) 3EX.2; GLUCOSE,POINT OF CARE 121 MG/DL (70-110)
[2025-03-03 20:56] VITALS: BP 103/69; PULSE 73; RESP 17; TEMP 98; O2SAT 98
[2025-03-04 06:56] LABS: GLUCOMETER DEV NAME(LOC) 3EX.2; GLUCOSE,POINT OF CARE 110 MG/DL (70-110)
[2025-03-04 10:51] VITALS: BP 91/79; PULSE 71; RESP 15; TEMP 97.4; O2SAT 95
[2025-03-04 11:41] LABS: GLUCOMETER DEV NAME(LOC) 3EX.2; GLUCOSE,POINT OF CARE 106 MG/DL (70-110)
[2025-03-04 16:31] LABS: GLUCOMETER DEV NAME(LOC) 3EX.2; GLUCOSE,POINT OF CARE 94 MG/DL (70-110)
[2025-03-04 20:31] LABS: GLUCOMETER DEV NAME(LOC) 3EX.2; GLUCOSE,POINT OF CARE 117 MG/DL (70-110)
[2025-03-04 20:37] VITALS: BP 106/61; PULSE 71; RESP 18; TEMP 98; O2SAT 97
[2025-03-05 06:35] LABS: GLUCOMETER DEV NAME(LOC) 3EX.2; GLUCOSE,POINT OF CARE 115 MG/DL (70-110)
[2025-03-05 08:00] VITALS: BP 109/80; PULSE 87; RESP 18; TEMP 98.1; O2SAT 96
[2025-03-05 11:46] LABS: GLUCOMETER DEV NAME(LOC) 3EX.2; GLUCOSE,POINT OF CARE 100 MG/DL (70-110)
[2025-03-05 17:55] LABS: GLUCOMETER DEV NAME(LOC) 3EX.2; GLUCOSE,POINT OF CARE 119 MG/DL (70-110)
[2025-03-05 20:36] LABS: GLUCOMETER DEV NAME(LOC) 3EX.2; GLUCOSE,POINT OF CARE 137 MG/DL (70-110)
[2025-03-05 20:59] VITALS: BP 109/72; PULSE 74; RESP 18; TEMP 97.9
[2025-03-06 05:31] LABS: GLUCOMETER DEV NAME(LOC) 3EX.2; GLUCOSE,POINT OF CARE 103 MG/DL (70-110)
[2025-03-06 10:34] VITALS: BP 111/79; PULSE 90; RESP 17; TEMP 97.7; O2SAT 96
[2025-03-06 12:10] LABS: GLUCOMETER DEV NAME(LOC) 3EX.2; GLUCOSE,POINT OF CARE 108 MG/DL (70-110)
[2025-03-06 17:51] LABS: GLUCOMETER DEV NAME(LOC) 3EX.2; GLUCOSE,POINT OF CARE 97 MG/DL (70-110)
[2025-03-06 21:11] LABS: GLUCOMETER DEV NAME(LOC) 3EX.2; GLUCOSE,POINT OF CARE 117 MG/DL (70-110)
[2025-03-06 21:14] VITALS: BP 119/63; PULSE 82; RESP 18; TEMP 98.1
[2025-03-07 06:40] LABS: GLUCOMETER DEV NAME(LOC) 3EX.2; GLUCOSE,POINT OF CARE 110 MG/DL (70-110)
[2025-03-07 11:40] LABS: GLUCOMETER DEV NAME(LOC) 3EX.2; GLUCOSE,POINT OF CARE 106 MG/DL (70-110)
[2025-03-07 12:54] VITALS: BP 108/73; PULSE 84; RESP 18; TEMP 97.2
[2025-03-07 18:15] LABS: GLUCOMETER DEV NAME(LOC) 3EX.2; GLUCOSE,POINT OF CARE 110 MG/DL (70-110)
[2025-03-07 20:11] LABS: GLUCOMETER DEV NAME(LOC) 3EX.2; GLUCOSE,POINT OF CARE 115 MG/DL (70-110)
[2025-03-07 22:13] VITALS: BP 117/82; PULSE 71; RESP 18; TEMP 97.5; O2SAT 98
[2025-03-08 06:16] LABS: GLUCOMETER DEV NAME(LOC) 3EX.2; GLUCOSE,POINT OF CARE 97 MG/DL (70-110)
[2025-03-08 11:20] LABS: GLUCOMETER DEV NAME(LOC) 3EX.2; GLUCOSE,POINT OF CARE 102 MG/DL (70-110)
[2025-03-08 12:41] VITALS: BP 98/79; PULSE 92; RESP 18; TEMP 97.7
[2025-03-08 17:26] LABS: GLUCOMETER DEV NAME(LOC) 3EX.2; GLUCOSE,POINT OF CARE 100 MG/DL (70-110)
[2025-03-08 21:29] VITALS: BP 109/89; PULSE 87; RESP 16; TEMP 96.2; O2SAT 97
[2025-03-08 21:51] LABS: GLUCOMETER DEV NAME(LOC) 3EX.2; GLUCOSE,POINT OF CARE 99 MG/DL (70-110)
[2025-03-09 06:40] LABS: GLUCOMETER DEV NAME(LOC) 3EX.2; GLUCOSE,POINT OF CARE 101 MG/DL (70-110)
[2025-03-09 08:45] VITALS: BP 112/82; PULSE 64; RESP 18; TEMP 97.9; O2SAT 97
[2025-03-09 12:05] LABS: GLUCOMETER DEV NAME(LOC) 3EX.2; GLUCOSE,POINT OF CARE 109 MG/DL (70-110)
[2025-03-09 17:41] LABS: GLUCOMETER DEV NAME(LOC) 3EX.2; GLUCOSE,POINT OF CARE 92 MG/DL (70-110)
[2025-03-09 21:50] VITALS: BP 121/84; PULSE 77; RESP 18; TEMP 97.7; O2SAT 96
[2025-03-09 21:51] LABS: GLUCOMETER DEV NAME(LOC) 3EX.2; GLUCOSE,POINT OF CARE 123 MG/DL (70-110)
[2025-03-10 06:25] LABS: GLUCOMETER DEV NAME(LOC) 3EX.2; GLUCOSE,POINT OF CARE 105 MG/DL (70-110)
[2025-03-10 08:00] VITALS: BP 95/68; PULSE 86; TEMP 97.9
[2025-03-10 12:05] LABS: GLUCOMETER DEV NAME(LOC) 3EX.2; GLUCOSE,POINT OF CARE 107 MG/DL (70-110)
[2025-03-10 18:41] LABS: GLUCOMETER DEV NAME(LOC) 3EX.2; GLUCOSE,POINT OF CARE 97 MG/DL (70-110)
[2025-03-10 21:21] VITALS: BP 102/63; PULSE 83; RESP 18; TEMP 97.4; O2SAT 94
[2025-03-10 21:26] LABS: GLUCOMETER DEV NAME(LOC) 3EX.2; GLUCOSE,POINT OF CARE 94 MG/DL (70-110)
[2025-03-11 07:01] LABS: GLUCOMETER DEV NAME(LOC) 3EX.2; GLUCOSE,POINT OF CARE 91 MG/DL (70-110)
[2025-03-11 09:16] VITALS: BP 106/71; PULSE 72; RESP 18; TEMP 97.9; O2SAT 97
[2025-03-11 11:40] LABS: GLUCOMETER DEV NAME(LOC) 3EX.2; GLUCOSE,POINT OF CARE 117 MG/DL (70-110)
[2025-03-11 17:00] LABS: GLUCOMETER DEV NAME(LOC) 3EX.2; GLUCOSE,POINT OF CARE 107 MG/DL (70-110)
[2025-03-11 20:20] LABS: GLUCOMETER DEV NAME(LOC) 3EX.2; GLUCOSE,POINT OF CARE 111 MG/DL (70-110)
[2025-03-11 21:33] VITALS: BP 107/70; PULSE 96; RESP 18; TEMP 98.1
[2025-03-12 06:46] LABS: GLUCOMETER DEV NAME(LOC) 3EX.2; GLUCOSE,POINT OF CARE 97 MG/DL (70-110)
[2025-03-12 09:24] VITALS: BP 87/65; PULSE 83; RESP 18; TEMP 98.4; O2SAT 95
[2025-03-12 12:05] LABS: GLUCOMETER DEV NAME(LOC) 3EX.2; GLUCOSE,POINT OF CARE 105 MG/DL (70-110)
[2025-03-12 17:55] LABS: GLUCOMETER DEV NAME(LOC) 3EX.2; GLUCOSE,POINT OF CARE 92 MG/DL (70-110)
[2025-03-12 21:36] LABS: GLUCOMETER DEV NAME(LOC) 3EX.2; GLUCOSE,POINT OF CARE 105 MG/DL (70-110)
[2025-03-12 22:00] VITALS: BP 108/71; PULSE 90; RESP 17; TEMP 97.6; O2SAT 96
[2025-03-13 07:06] LABS: GLUCOMETER DEV NAME(LOC) 3EX.2; GLUCOSE,POINT OF CARE 107 MG/DL (70-110)
[2025-03-13 10:00] VITALS: BP 100/69; PULSE 87; RESP 18; TEMP 98.2; O2SAT 97
[2025-03-13 12:00] LABS: GLUCOMETER DEV NAME(LOC) 3EX.2; GLUCOSE,POINT OF CARE 139 MG/DL (70-110)
[2025-03-13 17:56] LABS: GLUCOMETER DEV NAME(LOC) 3EX.2; GLUCOSE,POINT OF CARE 102 MG/DL (70-110)
[2025-03-13 20:16] LABS: GLUCOMETER DEV NAME(LOC) 3EX.2; GLUCOSE,POINT OF CARE 120 MG/DL (70-110)
[2025-03-13 21:02] VITALS: BP 114/73; PULSE 71; RESP 18; TEMP 98.5; O2SAT 98
[2025-03-14 06:10] LABS: GLUCOMETER DEV NAME(LOC) 3EX.2; GLUCOSE,POINT OF CARE 101 MG/DL (70-110)
[2025-03-14 12:16] LABS: GLUCOMETER DEV NAME(LOC) 3EX.2; GLUCOSE,POINT OF CARE 118 MG/DL (70-110)
[2025-03-14 12:47] VITALS: BP 112/71; PULSE 63; RESP 16; TEMP 97.8; O2SAT 97
[2025-03-14 17:41] LABS: GLUCOMETER DEV NAME(LOC) 3EX.2; GLUCOSE,POINT OF CARE 94 MG/DL (70-110)
[2025-03-14 20:55] LABS: GLUCOMETER DEV NAME(LOC) 3EX.2; GLUCOSE,POINT OF CARE 86 MG/DL (70-110)
[2025-03-14 21:57] VITALS: BP_SYST 138; BP_SYST 96; BP_DIAS 67; BP_DIAS 88; PULSE 71; PULSE 97; RESP 18; TEMP 97.8; O2SAT 97
[2025-03-15 06:31] LABS: GLUCOMETER DEV NAME(LOC) 3EX.2; GLUCOSE,POINT OF CARE 92 MG/DL (70-110)
[2025-03-15 09:00] VITALS: BP 129/90; PULSE 97; RESP 17; TEMP 98
[2025-03-15 11:55] LABS: GLUCOMETER DEV NAME(LOC) 3EX.2; GLUCOSE,POINT OF CARE 118 MG/DL (70-110)
[2025-03-15 17:31] LABS: GLUCOMETER DEV NAME(LOC) 3EX.2; GLUCOSE,POINT OF CARE 108 MG/DL (70-110)
[2025-03-15 20:36] LABS: GLUCOMETER DEV NAME(LOC) 3EX.2; GLUCOSE,POINT OF CARE 96 MG/DL (70-110)
[2025-03-16 06:20] LABS: GLUCOMETER DEV NAME(LOC) 3EX.2; GLUCOSE,POINT OF CARE 111 MG/DL (70-110)
[2025-03-16 09:00] VITALS: BP 108/82; PULSE 98; RESP 18; TEMP 97.5; O2SAT 98
[2025-03-16 11:45] LABS: GLUCOMETER DEV NAME(LOC) 3EX.2; GLUCOSE,POINT OF CARE 106 MG/DL (70-110)
[2025-03-16 17:30] LABS: GLUCOMETER DEV NAME(LOC) 3EX.2; GLUCOSE,POINT OF CARE 102 MG/DL (70-110)
[2025-03-16 20:41] LABS: GLUCOMETER DEV NAME(LOC) 3EX.2; GLUCOSE,POINT OF CARE 112 MG/DL (70-110)
[2025-03-16 22:18] VITALS: BP 126/87; PULSE 88; RESP 18; TEMP 98.1; O2SAT 98
[2025-03-17 06:15] LABS: GLUCOMETER DEV NAME(LOC) 3EX.2; GLUCOSE,POINT OF CARE 105 MG/DL (70-110)
[2025-03-17 09:00] VITALS: BP 97/69; PULSE 66; RESP 18; TEMP 97.9; O2SAT 97
[2025-03-17 12:06] LABS: GLUCOMETER DEV NAME(LOC) 3EX.2; GLUCOSE,POINT OF CARE 105 MG/DL (70-110)
[2025-03-17 17:15] LABS: GLUCOMETER DEV NAME(LOC) 3EX.2; GLUCOSE,POINT OF CARE 105 MG/DL (70-110)
[2025-03-17 20:10] LABS: GLUCOMETER DEV NAME(LOC) 3EX.2; GLUCOSE,POINT OF CARE 134 MG/DL (70-110)
[2025-03-17 20:14] VITALS: BP 118/85; PULSE 72; RESP 18; TEMP 98; O2SAT 99
[2025-03-18 06:25] LABS: GLUCOMETER DEV NAME(LOC) 3EX.2; GLUCOSE,POINT OF CARE 93 MG/DL (70-110)
[2025-03-18 09:00] VITALS: BP 99/60; PULSE 82; RESP 18; TEMP 97.9; O2SAT 96
[2025-03-18 11:50] LABS: GLUCOMETER DEV NAME(LOC) 3EX.2; GLUCOSE,POINT OF CARE 118 MG/DL (70-110)
[2025-03-18 17:51] LABS: GLUCOMETER DEV NAME(LOC) 3EX.2; GLUCOSE,POINT OF CARE 113 MG/DL (70-110)
[2025-03-18 20:21] LABS: GLUCOMETER DEV NAME(LOC) 3EX.2; GLUCOSE,POINT OF CARE 118 MG/DL (70-110)
[2025-03-18 20:47] VITALS: BP 114/86; PULSE 82; RESP 18; TEMP 98.9; O2SAT 97
[2025-03-19 06:25] LABS: GLUCOMETER DEV NAME(LOC) 3EX.2; GLUCOSE,POINT OF CARE 102 MG/DL (70-110)
[2025-03-19 09:30] VITALS: BP 104/83; PULSE 81; RESP 16; TEMP 98.6
[2025-03-19 12:01] LABS: GLUCOMETER DEV NAME(LOC) 3EX.2; GLUCOSE,POINT OF CARE 129 MG/DL (70-110)
[2025-03-19 17:40] LABS: GLUCOMETER DEV NAME(LOC) 3EX.2; GLUCOSE,POINT OF CARE 127 MG/DL (70-110)
[2025-03-19 20:16] LABS: GLUCOMETER DEV NAME(LOC) 3EX.2; GLUCOSE,POINT OF CARE 100 MG/DL (70-110)
[2025-03-19 21:59] VITALS: BP 115/68; PULSE 71; RESP 18; TEMP 97.3
[2025-03-20 06:15] LABS: GLUCOMETER DEV NAME(LOC) 3EX.2; GLUCOSE,POINT OF CARE 112 MG/DL (70-110)
[2025-03-20 08:59] VITALS: BP 100/80; PULSE 62; RESP 17; TEMP 97.2; O2SAT 96
[2025-03-20 12:01] LABS: GLUCOMETER DEV NAME(LOC) 3EX.2; GLUCOSE,POINT OF CARE 137 MG/DL (70-110)
[2025-03-20 17:21] LABS: GLUCOMETER DEV NAME(LOC) 3EX.2; GLUCOSE,POINT OF CARE 105 MG/DL (70-110)
[2025-03-20 20:30] LABS: GLUCOMETER DEV NAME(LOC) 3EX.2; GLUCOSE,POINT OF CARE 116 MG/DL (70-110)
[2025-03-20 21:44] VITALS: BP 118/79; PULSE 70; RESP 18; TEMP 98.4; O2SAT 97
[2025-03-21 06:20] LABS: GLUCOMETER DEV NAME(LOC) 3EX.2; GLUCOSE,POINT OF CARE 96 MG/DL (70-110)
[2025-03-21 11:05] VITALS: BP 88/65; PULSE 61; RESP 18; TEMP 97; O2SAT 98
[2025-03-21 11:51] LABS: GLUCOMETER DEV NAME(LOC) 3EX.2; GLUCOSE,POINT OF CARE 153 MG/DL (70-110)
[2025-03-21 17:20] LABS: GLUCOMETER DEV NAME(LOC) 3EX.2; GLUCOSE,POINT OF CARE 101 MG/DL (70-110)
[2025-03-21 20:11] LABS: GLUCOMETER DEV NAME(LOC) 3EX.2; GLUCOSE,POINT OF CARE 106 MG/DL (70-110)
[2025-03-21 22:01] VITALS: BP 124/88; PULSE 88; RESP 18; TEMP 97.8; O2SAT 95
[2025-03-22 05:55] LABS: GLUCOMETER DEV NAME(LOC) 3EX.2; GLUCOSE,POINT OF CARE 98 MG/DL (70-110)
[2025-03-22 08:30] VITALS: BP 98/71; PULSE 69; RESP 18; TEMP 97.5; O2SAT 98
[2025-03-22 11:36] LABS: GLUCOMETER DEV NAME(LOC) 3EX.2; GLUCOSE,POINT OF CARE 139 MG/DL (70-110)
[2025-03-22 17:15] LABS: GLUCOMETER DEV NAME(LOC) 3EX.2; GLUCOSE,POINT OF CARE 112 MG/DL (70-110)
[2025-03-22 21:00] LABS: GLUCOMETER DEV NAME(LOC) 3EX.2; GLUCOSE,POINT OF CARE 112 MG/DL (70-110)
[2025-03-22 23:30] VITALS: BP 129/82; PULSE 73; RESP 18; TEMP 98.1; O2SAT 98
[2025-03-23 05:50] LABS: GLUCOMETER DEV NAME(LOC) 3EX.2; GLUCOSE,POINT OF CARE 108 MG/DL (70-110)
[2025-03-23 10:09] VITALS: BP 94/60; PULSE 67; RESP 18; TEMP 97.8; O2SAT 98
[2025-03-23 11:30] LABS: GLUCOMETER DEV NAME(LOC) 3EX.2; GLUCOSE,POINT OF CARE 135 MG/DL (70-110)
[2025-03-23 17:46] LABS: GLUCOMETER DEV NAME(LOC) 3EX.2; GLUCOSE,POINT OF CARE 112 MG/DL (70-110)
[2025-03-23 20:38] VITALS: BP 128/81; PULSE 79; RESP 18; TEMP 97.9; O2SAT 99
[2025-03-23 21:36] LABS: GLUCOMETER DEV NAME(LOC) 3EX.2; GLUCOSE,POINT OF CARE 87 MG/DL (70-110)
[2025-03-24 06:36] LABS: GLUCOMETER DEV NAME(LOC) 3EX.2; GLUCOSE,POINT OF CARE 112 MG/DL (70-110)
[2025-03-24 11:45] VITALS: BP 98/68; PULSE 78; RESP 18; TEMP 98.1; O2SAT 96
[2025-03-24 11:46] LABS: GLUCOMETER DEV NAME(LOC) 3EX.2; GLUCOSE,POINT OF CARE 127 MG/DL (70-110)
[2025-03-24 17:51] LABS: GLUCOMETER DEV NAME(LOC) 3EX.2; GLUCOSE,POINT OF CARE 106 MG/DL (70-110)
[2025-03-24 21:41] LABS: GLUCOMETER DEV NAME(LOC) 3EX.2; GLUCOSE,POINT OF CARE 110 MG/DL (70-110)
[2025-03-24 21:50] VITALS: BP 100/69; PULSE 75; RESP 18; TEMP 97.9; O2SAT 98
[2025-03-25 06:56] LABS: GLUCOMETER DEV NAME(LOC) 3EX.2; GLUCOSE,POINT OF CARE 104 MG/DL (70-110)
[2025-03-25 09:00] VITALS: BP 80/61; PULSE 75; RESP 17; TEMP 97.5; O2SAT 98
[2025-03-25 11:31] LABS: GLUCOMETER DEV NAME(LOC) 3EX.2; GLUCOSE,POINT OF CARE 114 MG/DL (70-110)
[2025-03-25 16:51] LABS: GLUCOMETER DEV NAME(LOC) 3EX.2; GLUCOSE,POINT OF CARE 124 MG/DL (70-110)
[2025-03-25 19:51] LABS: GLUCOMETER DEV NAME(LOC) 3EX.2; GLUCOSE,POINT OF CARE 107 MG/DL (70-110)
[2025-03-25 21:42] VITALS: BP 113/85; PULSE 81; RESP 17; TEMP 97.1; O2SAT 96
[2025-03-26 06:31] LABS: GLUCOMETER DEV NAME(LOC) 3EX.2; GLUCOSE,POINT OF CARE 98 MG/DL (70-110)
[2025-03-26 09:20] VITALS: BP 105/73; PULSE 68; RESP 18; TEMP 97.9; O2SAT 97
[2025-03-26 12:16] LABS: GLUCOMETER DEV NAME(LOC) 3EX.2; GLUCOSE,POINT OF CARE 109 MG/DL (70-110)
[2025-03-26 17:41] LABS: GLUCOMETER DEV NAME(LOC) 3EX.2; GLUCOSE,POINT OF CARE 102 MG/DL (70-110)
[2025-03-26 20:00] VITALS: BP 95/64; PULSE 74; RESP 18; TEMP 98; O2SAT 98
[2025-03-26 20:16] LABS: GLUCOMETER DEV NAME(LOC) 3EX.2; GLUCOSE,POINT OF CARE 120 MG/DL (70-110)
[2025-03-26 20:29] VITALS: BP 98/68; PULSE 74; RESP 18; TEMP 98; O2SAT 98
[2025-03-27 06:30] LABS: GLUCOMETER DEV NAME(LOC) 3EX.2; GLUCOSE,POINT OF CARE 101 MG/DL (70-110)
[2025-03-27 11:01] VITALS: BP 102/79; PULSE 89; RESP 18; TEMP 97.7; O2SAT 97
[2025-03-27 11:56] LABS: GLUCOMETER DEV NAME(LOC) 3EX.2; GLUCOSE,POINT OF CARE 109 MG/DL (70-110)
[2025-03-27 17:50] LABS: GLUCOMETER DEV NAME(LOC) 3EX.2; GLUCOSE,POINT OF CARE 110 MG/DL (70-110)
[2025-03-27 19:36] LABS: GLUCOMETER DEV NAME(LOC) 3EX.2; GLUCOSE,POINT OF CARE 144 MG/DL (70-110)
[2025-03-27 20:50] VITALS: BP 100/71; PULSE 79; RESP 17; TEMP 98.1; O2SAT 99
[2025-03-28 06:21] LABS: GLUCOMETER DEV NAME(LOC) 3EX.2; GLUCOSE,POINT OF CARE 98 MG/DL (70-110)
[2025-03-28 08:00] VITALS: BP 97/71; PULSE 72; RESP 18; TEMP 96.9; O2SAT 98
[2025-03-28 11:55] LABS: GLUCOMETER DEV NAME(LOC) 3EX.2; GLUCOSE,POINT OF CARE 113 MG/DL (70-110)
[2025-03-28 17:46] LABS: GLUCOMETER DEV NAME(LOC) 3EX.2; GLUCOSE,POINT OF CARE 103 MG/DL (70-110)
[2025-03-28 19:51] LABS: GLUCOMETER DEV NAME(LOC) 3EX.2; GLUCOSE,POINT OF CARE 110 MG/DL (70-110)
[2025-03-28 20:55] VITALS: BP 119/92; PULSE 74; RESP 18; TEMP 97.8; O2SAT 99
[2025-03-29 06:46] LABS: GLUCOMETER DEV NAME(LOC) 3EX.2; GLUCOSE,POINT OF CARE 100 MG/DL (70-110)
[2025-03-29 12:06] LABS: GLUCOMETER DEV NAME(LOC) 3EX.2; GLUCOSE,POINT OF CARE 101 MG/DL (70-110)
[2025-03-29 12:26] VITALS: BP 102/80; PULSE 92; RESP 17; TEMP 98.2; O2SAT 97
[2025-03-29 16:40] LABS: GLUCOMETER DEV NAME(LOC) 3EX.2; GLUCOSE,POINT OF CARE 121 MG/DL (70-110)
[2025-03-29 21:56] LABS: GLUCOMETER DEV NAME(LOC) 3EX.2; GLUCOSE,POINT OF CARE 97 MG/DL (70-110)
[2025-03-29 23:34] VITALS: BP 103/62; PULSE 95; RESP 18; TEMP 97.8; O2SAT 95
[2025-03-30 06:00] LABS: GLUCOMETER DEV NAME(LOC) 3EX.2; GLUCOSE,POINT OF CARE 94 MG/DL (70-110)
[2025-03-30 08:00] VITALS: BP 104/77; PULSE 78; RESP 19; TEMP 97.9; O2SAT 97
[2025-03-30 12:00] LABS: GLUCOMETER DEV NAME(LOC) 3EX.2; GLUCOSE,POINT OF CARE 116 MG/DL (70-110)
[2025-03-30 16:57] LABS: GLUCOMETER DEV NAME(LOC) 3EX.2; GLUCOSE,POINT OF CARE 124 MG/DL (70-110)
[2025-03-30 20:15] LABS: GLUCOMETER DEV NAME(LOC) 3EX.2; GLUCOSE,POINT OF CARE 118 MG/DL (70-110)
[2025-03-30 22:08] VITALS: BP 99/77; PULSE 99; RESP 18; TEMP 98.2; O2SAT 95
[2025-03-31 06:20] LABS: GLUCOMETER DEV NAME(LOC) 3EX.2; GLUCOSE,POINT OF CARE 100 MG/DL (70-110)
[2025-03-31 08:00] VITALS: BP 101/68; PULSE 69; RESP 18; TEMP 98
[2025-03-31 12:11] LABS: GLUCOMETER DEV NAME(LOC) 3EX.2; GLUCOSE,POINT OF CARE 98 MG/DL (70-110)
[2025-03-31 16:35] LABS: GLUCOMETER DEV NAME(LOC) 3EX.2; GLUCOSE,POINT OF CARE 106 MG/DL (70-110)
[2025-03-31 21:29] VITALS: BP 110/87; PULSE 64; RESP 18; TEMP 98.2; O2SAT 98
[2025-03-31 21:31] LABS: GLUCOMETER DEV NAME(LOC) 3EX.2; GLUCOSE,POINT OF CARE 110 MG/DL (70-110)
[2025-04-01 07:11] LABS: GLUCOMETER DEV NAME(LOC) 3EX.2; GLUCOSE,POINT OF CARE 97 MG/DL (70-110)
[2025-04-01 11:46] LABS: GLUCOMETER DEV NAME(LOC) 3EX.2; GLUCOSE,POINT OF CARE 138 MG/DL (70-110)
[2025-04-01 12:59] VITALS: BP 110/82; PULSE 62; RESP 18; TEMP 97.5; O2SAT 99
[2025-04-01 18:06] LABS: GLUCOMETER DEV NAME(LOC) 3EX.2; GLUCOSE,POINT OF CARE 126 MG/DL (70-110)
[2025-04-01 19:41] LABS: GLUCOMETER DEV NAME(LOC) 3EX.2; GLUCOSE,POINT OF CARE 111 MG/DL (70-110)
[2025-04-01 21:44] VITALS: BP 113/88; PULSE 102; RESP 17; TEMP 98.2; O2SAT 96
[2025-04-02 05:56] LABS: GLUCOMETER DEV NAME(LOC) 3EX.2; GLUCOSE,POINT OF CARE 93 MG/DL (70-110)
[2025-04-02 10:52] VITALS: BP 96/66; PULSE 59; RESP 17; TEMP 98.2; O2SAT 96
[2025-04-02 11:55] LABS: GLUCOMETER DEV NAME(LOC) 3EX.2; GLUCOSE,POINT OF CARE 106 MG/DL (70-110)
[2025-04-02 17:30] LABS: GLUCOMETER DEV NAME(LOC) 3EX.2; GLUCOSE,POINT OF CARE 99 MG/DL (70-110)
[2025-04-02 21:40] LABS: GLUCOMETER DEV NAME(LOC) 3EX.2; GLUCOSE,POINT OF CARE 115 MG/DL (70-110)
[2025-04-02 21:50] VITALS: BP 103/77; PULSE 87; RESP 18; TEMP 98.5; O2SAT 98
[2025-04-03 06:50] LABS: GLUCOMETER DEV NAME(LOC) 3EX.2; GLUCOSE,POINT OF CARE 99 MG/DL (70-110)
[2025-04-03 08:15] VITALS: BP 115/72; PULSE 78; RESP 17; TEMP 97.5; O2SAT 97
[2025-04-03 11:30] LABS: GLUCOMETER DEV NAME(LOC) 3EX.2; GLUCOSE,POINT OF CARE 99 MG/DL (70-110)
[2025-04-03 17:31] LABS: GLUCOMETER DEV NAME(LOC) 3EX.2; GLUCOSE,POINT OF CARE 89 MG/DL (70-110)
[2025-04-03 20:26] LABS: GLUCOMETER DEV NAME(LOC) 3EX.2; GLUCOSE,POINT OF CARE 130 MG/DL (70-110)
[2025-04-03 21:43] VITALS: BP 110/80; PULSE 70; RESP 16; TEMP 97.2; O2SAT 97
[2025-04-04 06:36] LABS: GLUCOMETER DEV NAME(LOC) 3EX.2; GLUCOSE,POINT OF CARE 91 MG/DL (70-110)
[2025-04-04 08:45] VITALS: BP 100/62; PULSE 66; RESP 18; TEMP 98; O2SAT 98
[2025-04-04 11:25] LABS: GLUCOMETER DEV NAME(LOC) 3EX.2; GLUCOSE,POINT OF CARE 116 MG/DL (70-110)
[2025-04-04 17:26] LABS: GLUCOMETER DEV NAME(LOC) 3EX.2; GLUCOSE,POINT OF CARE 108 MG/DL (70-110)
[2025-04-04 20:51] LABS: GLUCOMETER DEV NAME(LOC) 3EX.2; GLUCOSE,POINT OF CARE 101 MG/DL (70-110)
[2025-04-04 20:53] VITALS: BP 107/79; PULSE 73; RESP 18; TEMP 97.9; O2SAT 98
[2025-04-05 06:50] LABS: GLUCOMETER DEV NAME(LOC) 3EX.2; GLUCOSE,POINT OF CARE 92 MG/DL (70-110)
[2025-04-05 11:40] LABS: GLUCOMETER DEV NAME(LOC) 3EX.2; GLUCOSE,POINT OF CARE 120 MG/DL (70-110)
[2025-04-05 17:26] LABS: GLUCOMETER DEV NAME(LOC) 3EX.2; GLUCOSE,POINT OF CARE 99 MG/DL (70-110)
[2025-04-05 18:45] VITALS: BP 120/73; PULSE 84; RESP 18; TEMP 98.2; O2SAT 100
[2025-04-05 20:22] VITALS: BP 108/64; PULSE 73; RESP 18; TEMP 98; O2SAT 97
[2025-04-05 20:30] LABS: GLUCOMETER DEV NAME(LOC) 3EX.2; GLUCOSE,POINT OF CARE 94 MG/DL (70-110)
[2025-04-06 06:35] LABS: GLUCOMETER DEV NAME(LOC) 3EX.2; GLUCOSE,POINT OF CARE 104 MG/DL (70-110)
[2025-04-06 09:35] VITALS: BP 106/80; PULSE 99; RESP 18; TEMP 98.2; O2SAT 98
[2025-04-06 11:21] LABS: GLUCOMETER DEV NAME(LOC) 3EX.2; GLUCOSE,POINT OF CARE 153 MG/DL (70-110)
[2025-04-06 16:26] LABS: GLUCOMETER DEV NAME(LOC) 3EX.2; GLUCOSE,POINT OF CARE 114 MG/DL (70-110)
[2025-04-06 20:19] VITALS: BP 107/79; PULSE 80; RESP 18; TEMP 98.2; O2SAT 98
[2025-04-06 20:31] LABS: GLUCOMETER DEV NAME(LOC) 3EX.2; GLUCOSE,POINT OF CARE 119 MG/DL (70-110)
[2025-04-07 06:10] LABS: GLUCOMETER DEV NAME(LOC) 3EX.2; GLUCOSE,POINT OF CARE 99 MG/DL (70-110)
[2025-04-07 09:32] VITALS: BP 105/74; PULSE 56; RESP 18; TEMP 98.1; O2SAT 96
[2025-04-07 11:11] LABS: GLUCOMETER DEV NAME(LOC) 3EX.2; GLUCOSE,POINT OF CARE 145 MG/DL (70-110)
[2025-04-07 17:26] LABS: GLUCOMETER DEV NAME(LOC) 3EX.2; GLUCOSE,POINT OF CARE 103 MG/DL (70-110)
[2025-04-07 20:05] LABS: GLUCOMETER DEV NAME(LOC) 3EX.2; GLUCOSE,POINT OF CARE 111 MG/DL (70-110)
[2025-04-07 20:22] VITALS: BP 110/80; PULSE 75; RESP 18; TEMP 98.3; O2SAT 98
[2025-04-08 06:21] LABS: GLUCOMETER DEV NAME(LOC) 3EX.2; GLUCOSE,POINT OF CARE 123 MG/DL (70-110)
[2025-04-08 10:01] VITALS: BP 105/72; PULSE 80; RESP 18; TEMP 97; O2SAT 97
[2025-04-08 12:05] LABS: GLUCOMETER DEV NAME(LOC) 3EX.2; GLUCOSE,POINT OF CARE 117 MG/DL (70-110)
[2025-04-08 17:00] LABS: GLUCOMETER DEV NAME(LOC) 3EX.2; GLUCOSE,POINT OF CARE 110 MG/DL (70-110)
[2025-04-08 20:11] LABS: GLUCOMETER DEV NAME(LOC) 3EX.2; GLUCOSE,POINT OF CARE 109 MG/DL (70-110)
[2025-04-08 20:22] VITALS: BP 99/67; PULSE 70; RESP 18; TEMP 98.4; O2SAT 98
[2025-04-09 06:26] LABS: GLUCOMETER DEV NAME(LOC) 3EX.2; GLUCOSE,POINT OF CARE 95 MG/DL (70-110)
[2025-04-09 08:03] VITALS: BP 119/88; PULSE 60; RESP 18; TEMP 98.2; O2SAT 96
[2025-04-09 11:56] LABS: GLUCOMETER DEV NAME(LOC) 3EX.2; GLUCOSE,POINT OF CARE 120 MG/DL (70-110)
[2025-04-09 17:26] LABS: GLUCOMETER DEV NAME(LOC) 3EX.2; GLUCOSE,POINT OF CARE 119 MG/DL (70-110)
[2025-04-09 20:45] LABS: GLUCOMETER DEV NAME(LOC) 3E.C; GLUCOSE,POINT OF CARE 113 MG/DL (70-110)
[2025-04-09 21:25] VITALS: BP 116/72; PULSE 66; RESP 18; TEMP 97.9; O2SAT 97
[2025-04-10 06:31] LABS: GLUCOMETER DEV NAME(LOC) 3EX.2; GLUCOSE,POINT OF CARE 97 MG/DL (70-110)
[2025-04-10 07:32] LABS: PLATELET COUNT (AUTO) 253 K/uL (150-450); RED BLOOD CELL COUNT(AUTO) 4.50 MIL/uL (4.50-5.90); RED CELL DISTRIBUTION WIDTH 13.8 % (11.5-14.5); WHITE BLOOD COUNT (AUTO) 10.2 K/uL (4.5-11.0)
[2025-04-10 07:41] LABS: CALCIUM, TOTAL 9.6 mg/dL (8.8-10.5); CREATININE 0.78 mg/dL (0.60-1.30); GLOMERULAR FILTR. RATE CALC > 60 mL/min (>60); GLUCOSE,RANDOM 100 mg/dL (70-110); SODIUM SERUM 132 mmol/L (136-145); UREA NITROGEN, BLOOD 11 mg/dL (7-18)
[2025-04-10 07:46] LABS: CHOL/HDL RATIO 2.2 (4.2-7.3); LDL CHOL (CALC.) 37.0 mg/dL (0-130)
[2025-04-10 09:12] VITALS: BP 107/81; PULSE 75; RESP 18; TEMP 97.4; O2SAT 97
[2025-04-10 11:46] LABS: GLUCOMETER DEV NAME(LOC) 3EX.2; GLUCOSE,POINT OF CARE 107 MG/DL (70-110)
[2025-04-10 17:16] LABS: GLUCOMETER DEV NAME(LOC) 3EX.2; GLUCOSE,POINT OF CARE 106 MG/DL (70-110)
[2025-04-10 20:50] VITALS: BP 112/78; PULSE 68; RESP 18; TEMP 97.7; O2SAT 100
[2025-04-11 10:12] VITALS: BP 99/71; PULSE 60; RESP 16; TEMP 97.1; O2SAT 95
[2025-04-11 20:38] VITALS: BP 105/72; PULSE 68; RESP 18; TEMP 97.8
[2025-04-12 08:00] VITALS: BP 103/72; PULSE 63; RESP 17; TEMP 97.5; O2SAT 95
[2025-04-12 20:54] VITALS: BP 115/68; PULSE 76; RESP 18; TEMP 97.7
[2025-04-13 08:00] VITALS: BP 113/91; PULSE 72; RESP 18; TEMP 98.2; O2SAT 97
[2025-04-13 21:00] VITALS: BP 113/80; PULSE 84; RESP 18; TEMP 98.1
[2025-04-14 08:00] VITALS: BP 115/76; PULSE 69; RESP 18; TEMP 97.9; O2SAT 96
[2025-04-14 23:17] VITALS: BP 126/73; PULSE 87; RESP 18; TEMP 97.2; O2SAT 96
[2025-04-15 08:12] VITALS: BP 107/70; PULSE 59; RESP 16; TEMP 98.2; O2SAT 96
[2025-04-15 22:38] VITALS: BP 125/75; PULSE 68; RESP 18; TEMP 98.2; O2SAT 98
[2025-04-16 11:42] VITALS: BP 107/85; PULSE 61; RESP 16; TEMP 98.1; O2SAT 95
[2025-04-16 20:46] VITALS: BP 110/78; PULSE 63; RESP 17; TEMP 98.3; O2SAT 98
[2025-04-17 10:50] VITALS: BP 102/73; PULSE 79; RESP 18; TEMP 98.4; O2SAT 0
[2025-04-17 21:17] VITALS: BP 104/70; PULSE 83; RESP 18; TEMP 98.6; O2SAT 96
[2025-04-18 09:05] VITALS: BP 122/71; PULSE 60; RESP 18; TEMP 98.2; O2SAT 100
[2025-04-18 21:44] VITALS: BP 109/76; PULSE 68; RESP 18; TEMP 97.1; O2SAT 95
[2025-04-19 10:40] VITALS: BP 124/92; PULSE 87; RESP 18; TEMP 97.7; O2SAT 97
[2025-04-19 21:36] VITALS: BP 91/65; PULSE 68; RESP 18; TEMP 98.2; O2SAT 98
[2025-04-20 08:45] VITALS: BP 118/86; PULSE 102; RESP 18; TEMP 97.5; O2SAT 96
[2025-04-20 20:46] VITALS: BP 121/72; PULSE 85; RESP 18; TEMP 97.7
[2025-04-21 11:44] VITALS: BP 105/53; PULSE 57; RESP 17; TEMP 98.2; O2SAT 100
[2025-04-21 21:42] VITALS: BP 124/80; PULSE 91; RESP 18; TEMP 98; O2SAT 96
[2025-04-22 09:00] VITALS: BP 128/81; PULSE 60; RESP 18; TEMP 97.7; O2SAT 97
[2025-04-22 23:39] VITALS: BP 92/70; PULSE 76; RESP 18; TEMP 98.2; O2SAT 97
[2025-04-23 11:08] VITALS: BP 134/84; PULSE 99; RESP 18; TEMP 97.5; O2SAT 99
[2025-04-23 23:21] VITALS: BP 95/61; PULSE 69; RESP 18; TEMP 97.8; O2SAT 95
[2025-04-24 08:14] VITALS: BP 100/69; PULSE 80; RESP 17; TEMP 97.9; O2SAT 98
[2025-04-24 22:58] VITALS: BP 104/71; PULSE 71; RESP 18; TEMP 97.5; O2SAT 95
[2025-04-25 09:45] VITALS: BP 129/102; PULSE 86; RESP 18; TEMP 98.1; O2SAT 98
[2025-04-25 21:05] VITALS: BP 121/69; PULSE 66; RESP 18; TEMP 98; O2SAT 97
[2025-04-26 10:46] VITALS: BP 116/79; PULSE 71; RESP 18; TEMP 98.2; O2SAT 97
[2025-04-26 23:27] VITALS: BP 124/86; PULSE 76; RESP 17; O2SAT 96
[2025-04-27 10:26] VITALS: BP 100/65; PULSE 72; RESP 18; TEMP 97.8; O2SAT 98
[2025-04-27 20:27] VITALS: BP 101/77; PULSE 81; RESP 18; TEMP 97.5; O2SAT 97
[2025-04-28 10:09] VITALS: BP 120/86; PULSE 75; RESP 16; TEMP 98; O2SAT 95
[2025-04-28 20:16] VITALS: BP 98/62; PULSE 63; RESP 16; TEMP 97.9; O2SAT 95
[2025-04-29 11:05] VITALS: BP 114/93; PULSE 94; RESP 18; TEMP 97.8; O2SAT 98
[2025-04-29 22:00] VITALS: BP 98/61; PULSE 60; RESP 17; TEMP 98.4; O2SAT 95
[2025-04-30 12:03] VITALS: BP 108/74; PULSE 61; RESP 18; TEMP 98.1
[2025-04-30 20:55] VITALS: BP 108/76; PULSE 71; RESP 18; TEMP 97.1; O2SAT 96
[2025-05-01 11:35] VITALS: BP 102/73; PULSE 80; RESP 18; TEMP 98.7; O2SAT 95
[2025-05-01 20:54] VITALS: BP 110/60; PULSE 72; RESP 17; TEMP 98.2; O2SAT 97
[2025-05-02 15:53] VITALS: BP 109/72; PULSE 79; RESP 16; TEMP 97.8; O2SAT 100
[2025-05-02 23:21] VITALS: BP 118/71; PULSE 70; RESP 18; TEMP 98; O2SAT 98
[2025-05-03 14:31] VITALS: BP 103/80; PULSE 84; RESP 18; TEMP 98
[2025-05-03 22:31] VITALS: BP 110/75; PULSE 86; RESP 18; TEMP 97.7; O2SAT 97
[2025-05-04 10:25] VITALS: BP 108/83; PULSE 95; RESP 15; TEMP 97.6; O2SAT 98
[2025-05-04 20:34] VITALS: BP 150/79; PULSE 81; RESP 18; TEMP 98.1; O2SAT 96
[2025-05-05 09:00] VITALS: BP 100/89; PULSE 89; RESP 17; TEMP 97.5; O2SAT 97
[2025-05-05 22:35] VITALS: BP 124/89; PULSE 73; RESP 18; TEMP 97.6; O2SAT 97
[2025-05-06 09:00] VITALS: BP 119/81; PULSE 57; RESP 18; TEMP 97.9; O2SAT 98
[2025-05-06 22:23] VITALS: BP 114/69; PULSE 68; RESP 18; TEMP 98.1
[2025-05-07 09:00] VITALS: BP 106/64; PULSE 77; RESP 18; TEMP 97.7; O2SAT 98
[2025-05-07 21:58] VITALS: BP 163/83; PULSE 69; RESP 18; TEMP 98.3; O2SAT 97
[2025-05-08 08:44] VITALS: BP 136/95; PULSE 99; RESP 17; TEMP 98.1; O2SAT 97
[2025-05-08 21:20] VITALS: BP 124/76; PULSE 97; RESP 16; TEMP 97; O2SAT 96
[2025-05-09 13:47] VITALS: BP 109/75; PULSE 62; RESP 17; TEMP 97
[2025-05-09 21:02] VITALS: BP 123/71; PULSE 75; RESP 18; TEMP 97.2
[2025-05-10 13:33] VITALS: BP 119/76; PULSE 103; RESP 18; TEMP 98.3; O2SAT 98
[2025-05-10 21:38] VITALS: BP 107/63; PULSE 87; RESP 18; TEMP 98.1
[2025-05-11 14:53] VITALS: BP 105/69; PULSE 64; RESP 18; TEMP 98.3; O2SAT 95
[2025-05-11 20:00] VITALS: BP 110/70; PULSE 70; RESP 18; TEMP 98.1; O2SAT 97
[2025-05-12 08:32] VITALS: BP 99/74; PULSE 98; RESP 18; TEMP 97.8; O2SAT 98
[2025-05-12 20:47] VITALS: BP 105/71; PULSE 70; RESP 17; TEMP 97.5; O2SAT 95
[2025-05-13 09:28] VITALS: BP 111/80; PULSE 83; RESP 17; TEMP 97.9; O2SAT 100
[2025-05-13 21:00] VITALS: BP 107/75; PULSE 88; RESP 19; TEMP 98.6; O2SAT 97
[2025-05-14 09:04] VITALS: BP 127/91; PULSE 85; RESP 16; TEMP 97.9; O2SAT 97
[2025-05-14 21:46] VITALS: BP 117/86; PULSE 81; RESP 18; TEMP 97.6; O2SAT 98
[2025-05-15 11:30] VITALS: BP 100/71; PULSE 62; RESP 18; TEMP 98; O2SAT 96
[2025-05-15 21:08] VITALS: BP 115/82; PULSE 68; RESP 18; TEMP 97.8
[2025-05-16 10:23] VITALS: BP 98/82; PULSE 58; RESP 18; TEMP 97.9; O2SAT 95
[2025-05-16 21:24] VITALS: BP 104/79; PULSE 88; RESP 18; TEMP 98.2; O2SAT 96
[2025-05-17 11:12] VITALS: BP 103/64; PULSE 78; RESP 17; TEMP 98; O2SAT 95
[2025-05-17 21:52] VITALS: BP 145/89; PULSE 65; RESP 18; TEMP 98.6; O2SAT 97
[2025-05-18 08:00] VITALS: BP 118/71; PULSE 68; RESP 18; TEMP 97.8; O2SAT 97
[2025-05-18 22:17] VITALS: BP 118/80; PULSE 68; RESP 18; TEMP 97.8; O2SAT 96
[2025-05-19 11:41] VITALS: BP 107/74; PULSE 62; RESP 18; TEMP 98.2; O2SAT 95
[2025-05-19 20:00] VITALS: BP 120/69; PULSE 76; RESP 18; TEMP 98; O2SAT 97
[2025-05-20 08:06] VITALS: BP 130/70; PULSE 86; RESP 17; TEMP 97.8; O2SAT 98
[2025-05-20 20:36] VITALS: BP 117/89; PULSE 91; RESP 18; TEMP 98.3; O2SAT 95
[2025-05-21] MEDS: TRIHEXYPHENIDYL HCL 2 MG TABLET PO SCH (09:16)
[2025-05-21 11:01] VITALS: BP 91/63; PULSE 60; RESP 16; TEMP 97.9; O2SAT 95
[2025-05-21] MEDS: TRIHEXYPHENIDYL HCL 5 MG TABLET PO SCH (17:11)
[2025-05-21] MEDS: DIVALPROEX SODIUM 500 MG ER TABLET PO SCH (17:11)
[2025-05-21] MEDS: DIVALPROEX SODIUM 250 MG ER TABLET PO SCH (20:52)
[2025-05-21 20:53] VITALS: BP 112/61; PULSE 83; RESP 18; TEMP 97.7
[2025-05-22 11:09] VITALS: BP 122/78; PULSE 61; RESP 18; TEMP 97.7; O2SAT 97
[2025-05-22 20:50] VITALS: BP 135/87; PULSE 84; RESP 18; TEMP 97.3; O2SAT 96
[2025-05-23 08:00] VITALS: BP 114/90; PULSE 90; RESP 18; TEMP 98.1; O2SAT 100
[2025-05-23 22:15] VITALS: BP 111/61; PULSE 74; RESP 16; TEMP 98; O2SAT 95
[2025-05-24 09:00] VITALS: BP 105/80; PULSE 76; RESP 17; TEMP 97.9
[2025-05-24 21:55] VITALS: BP 119/84; PULSE 81; RESP 18; TEMP 98.1
[2025-05-25 11:13] VITALS: BP 102/68; PULSE 71; RESP 18; TEMP 97.9; O2SAT 95
[2025-05-25 21:53] VITALS: BP 110/78; PULSE 80; RESP 17; TEMP 97.3; O2SAT 97
[2025-05-26 09:00] VITALS: BP 109/66; PULSE 63; RESP 18; TEMP 97.5; O2SAT 96
[2025-05-26 21:25] VITALS: BP 111/65; PULSE 70; RESP 18; TEMP 98; O2SAT 99
[2025-05-27 09:00] VITALS: BP 121/72; PULSE 73; RESP 17; TEMP 97.9; O2SAT 94
[2025-05-27 23:26] VITALS: BP 103/76; PULSE 69; RESP 18; TEMP 98.1; O2SAT 100
[2025-05-28 09:00] VITALS: BP 95/67; PULSE 72; RESP 16; TEMP 98.5
[2025-05-28 22:58] VITALS: BP 110/70; PULSE 78; RESP 18; TEMP 97.6; O2SAT 97
[2025-05-29 11:11] VITALS: BP 106/75; PULSE 59; RESP 18; TEMP 97.8; O2SAT 96
[2025-05-29 20:51] VITALS: BP 115/65; PULSE 60; RESP 18; TEMP 97.9
[2025-05-30 14:00] VITALS: BP 97/64; PULSE 56; RESP 18; TEMP 98; O2SAT 98
[2025-05-30 21:20] VITALS: BP 122/67; PULSE 61; RESP 16; TEMP 97.6; O2SAT 98
[2025-05-31 08:00] VITALS: BP 101/80; PULSE 87; RESP 18; O2SAT 96
[2025-05-31 20:05] VITALS: BP 120/89; PULSE 77; RESP 18; TEMP 98.6; O2SAT 96
[2025-06-01] MEDS ORDERED: TRIH5TAB3 PO (10:00)
[2025-06-01] MEDS ORDERED: MELA5TAB40 PO (10:00)
[2025-06-01] MEDS ORDERED: LEVE-71 PO (10:00)
[2025-06-01] MEDS ORDERED: DIVA-153 PO (10:00)
[2025-06-01] MEDS ORDERED: DIVA-85 PO (10:00)
[2025-06-01] MEDS ORDERED: PALI117D IM (10:03)
[2025-06-01 10:04] VITALS: BP 95/60; PULSE 51; RESP 18; TEMP 97.8; O2SAT 100
[2025-06-01 10:16] VITALS: BP 95/60; PULSE 51; RESP 18; TEMP 97.8; O2SAT 100
== END 2025-06-01 12:20 | DRG 750 ==
LOC: EMS 11:51 → UNDOADMIN 15:28 → EDH 15:28 → B3A 01-05 00:12 → 3EC 02-02 20:53 → 3EX 02-10 18:47 → 3EI 02-10 18:55
PROVIDERS: ADMIT Psychiatry & Neurology Psychiatry; ATTEND Psychiatry & Neurology Psychiatry
PROC: GZHZZZZ Group Psychotherapy (ICD-10-PCS; principal; 2025-01-05)
PROC: GZ58ZZZ Individual Psychotherapy, Cognitive-Behavioral (ICD-10-PCS; 2025-01-05)
PROC: GZ56ZZZ Individual Psychotherapy, Supportive (ICD-10-PCS; 2025-01-08)
DX: F25.9 Schizoaffective disorder, unspecified (principal); G40.409 Other generalized epilepsy and epileptic syndromes, not intractable, without status epilepticus; J44.9 Chronic obstructive pulmonary disease, unspecified; K21.9 Gastro-esophageal reflux disease without esophagitis; Z20.822 Contact with and (suspected) exposure to COVID-19; F10.20 Alcohol dependence, uncomplicated; E11.9 Type 2 diabetes mellitus without complications; F17.200 Nicotine dependence, unspecified, uncomplicated; Z63.9 Problem related to primary support group, unspecified; Z59.9 Problem related to housing and economic circumstances, unspecified; Z65.3 Problems related to other legal circumstances; Z55.9 Problems related to education and literacy, unspecified; Z59.71 Insufficient health insurance coverage; Z75.1 Person awaiting admission to adequate facility elsewhere; Z88.0 Allergy status to penicillin
CPT/HCPCS: 71045; 80048; 80061; 80076; 80164; 80307; 81003; 82140; 82550; 82962; 83036; 83605; 83880; 84439; 84443; 84484; 85025; 86592; 87081; 93005; 97116; 97162; 97166; 97530; 97535; 99285; G0378; G0480; G0482; J0712; J7060; 36415-L1; 36415-TC